=== PATIENT | male | born 1950 | race African-American/Black ===

== ENCOUNTER 2024-06-08 09:25 | Inpatient (IN) | payer OTHER ==
[~2024-06-08] VITALS: Ht 175.3 cm; Wt 60.3 kg
[2024-06-08 09:28] VITALS: O2SAT 100
[2024-06-08] MEDS: KETOROLAC 15MG/ML VIAL IV ONE (10:33)
[2024-06-08] MEDS: ACETAMINOPHEN 325MG TABLET PO ONE (10:33)
[2024-06-08 10:34] LABS: HEMATOCRIT. 27.6 % (42.0-52.0); HEMOGLOBIN. 8.4 g/dL (14.0-18.0); MEAN CORPUSCULAR HEMOGLOBIN 22.4 pg (28.0-32.0); MEAN CORPUSCULAR HGB CONC 30.6 g/dL (31.0-37.0); MEAN CORPUSCULAR VOLUME 73.1 fL (80.0-94.0); MEAN PLATELET VOLUME 7.5 fl (7.4-10.4); PLATELET 111 x1000/uL (130-400); RED BLOOD CELL COUNT 3.78 mill/uL (4.7-6.1); RED CELL DISTRIBUTION WIDTH 17.8 % (11.6-14.6)
[2024-06-08 10:46] LABS: CHLORIDE 102 mEq/L (98-107); POTASSIUM 3.9 mEq/L (3.5-5.1); SODIUM 136 mEq/L (136-145)
[2024-06-08 10:47] LABS: CALCIUM 9.6 mg/dL (8.7-10.4); CARBON DIOXIDE 20 mEq/L (21-32)
[2024-06-08 10:52] LABS: CREATININE 0.8 mg/dL (0.6-1.3); GLUCOSE 96 mg/dL (70-105); UREA NITROGEN BLOOD 14 mg/dL (9-23)
[2024-06-08 10:53] LABS: ALANINE AMINOTRANSFERASE < 7 IU/L (10-49)
[2024-06-08 10:54] LABS: ALBUMIN 3.8 g/dL (3.2-4.8); ASPARTATE AMINOTRANSFERASE 29 IU/L (<34); PROTEIN TOTAL 6.6 g/dL (6.0-8.3)
[2024-06-08 11:13] LABS: DIFFERENTIAL COMMENT 1
[2024-06-08 12:00] VITALS: BP_SYST 112; BP_SYST 119; BP_DIAS 70; BP_DIAS 71; PULSE 100; PULSE 93; RESP 17; RESP 18; TEMP 36.2; TEMP 36.3; O2SAT 100; O2SAT 99
[2024-06-08 13:01] LABS: ATYPICAL LYMPHOCYTES 1; NUCLEATED RED BLOOD CELLS 10 /100 WBC
[2024-06-08 13:02] LABS: ANISOCYTOSIS 2+; MICROCYTOSIS 1+; PLATELET ESTIMATE SLIGHTLY DECREASED
[2024-06-08 13:03] LABS: TEAR DROP CELLS 1+
[2024-06-08] MEDS ORDERED: ONDANSETRON HCL 4MG/2ML INJ IV PRN (13:15)
[2024-06-08] MEDS ORDERED: IPRATROPIUM/ALBUTEROL 0.5-3(2.5)MG/3ML NEB HHN PRN (13:15)
[2024-06-08] MEDS ORDERED: ACETAMINOPHEN 325MG TABLET PO PRN ×2 (13:15)
[2024-06-08] MEDS: NA PHOS,M-B/NA PHOS,DI-BA ENEMA 118ML PR NR (13:15)
[2024-06-08] MEDS ORDERED: DOCUSATE SODIUM 100MG CAPSULE PO PRN (13:15)
[2024-06-08] MEDS ORDERED: CLONIDINE 0.1MG TABLET PO PRN (13:15)
[2024-06-08] MEDS ORDERED: NALOXONE HCL 0.4MG/ML VIAL IV PRN (13:30)
[2024-06-08] MEDS ORDERED: AMLO10TA80 MT (13:59)
[2024-06-08] MEDS ORDERED: ATOR40TA70 MT (13:59)
[2024-06-08 14:44] LABS: IRON 87 ug/dL (65-175)
[2024-06-08 14:45] LABS: TRIGLYCERIDE 156 mg/dL (0-150)
[2024-06-08 14:46] LABS: LDL CHOLESTEROL 107 mg/dL (5-100)
[2024-06-08 14:47] LABS: CHOLESTEROL 164 mg/dL (<200); HDL CHOLESTEROL 24 mg/dL (>55); TOTAL IRON BINDING CAPACITY 533 ug/dl (250-425)
[2024-06-08 15:12] LABS: HEPATITIS B SURFACE ANTIGEN NEGATIVE (Negative)
[2024-06-08 15:32] LABS: HEPATITIS A AB IGM NEGATIVE (Negative)
[2024-06-08 15:33] LABS: HEPATITIS B CORE AB IGM NEGATIVE (Negative); HEPATITIS C AB NON REACTIVE (Neg) (Negative)
[2024-06-08 16:00] VITALS: BP 104/65; PULSE 78; RESP 16; TEMP 36.3; O2SAT 97
[2024-06-08] MEDS: LACTULOSE 20G/30ML UDC PO NR (18:48)
[2024-06-08] MEDS: POLYETHYLENE GLYCOL 3350 (17GM) 1 DOSE PACK PO SCH (18:49)
[2024-06-08] MEDS: PANTOPRAZOLE SODIUM 40 MG/VIAL IV SCH (18:49)
[2024-06-08 20:00] VITALS: BP 101/53; PULSE 85; RESP 19; TEMP 37.1; O2SAT 100
[2024-06-08 20:31] LABS: CREATINE KINASE MB FRACTION 0.6 ng/mL (0.5-3.6); TROPONIN I HIGH SENSITIVITY 6 ng/L (3.0-53)
[2024-06-08 20:32] LABS: AMMONIA 35 uMol/L (<32); CREATINE KINASE 101 IU/L (46-171)
[2024-06-08] MEDS ORDERED: SENNOSIDES/DOCUSATE SOD 8.6/50MG TABLET PO PRN (21:00)
[2024-06-08] MEDS: FILGRASTIM-TBO 300 MCG/0.5 ML SYRINGE SQ NR (22:25)
[2024-06-09] VITALS: BP 100/70; PULSE 79; RESP 19; TEMP 36.7; O2SAT 100
[2024-06-09 04:00] VITALS: BP 116/82; PULSE 82; RESP 18; TEMP 36.8; O2SAT 99
[2024-06-09 06:54] LABS: INR 1.1; PROTHROMBIN TIME 11.4 sec (9.6-11.0)
[2024-06-09 07:04] LABS: HEMOGLOBIN. 8.4 g/dL (14.0-18.0); MEAN CORPUSCULAR HEMOGLOBIN 22.4 pg (28.0-32.0); MEAN CORPUSCULAR HGB CONC 31.1 g/dL (31.0-37.0); MEAN CORPUSCULAR VOLUME 72.1 fL (80.0-94.0); MEAN PLATELET VOLUME 7.8 fl (7.4-10.4); PLATELET 123 x1000/uL (130-400); RED BLOOD CELL COUNT 3.74 mill/uL (4.7-6.1); RED CELL DISTRIBUTION WIDTH 17.9 % (11.6-14.6)
[2024-06-09 07:13] LABS: CHLORIDE 103 mEq/L (98-107); SODIUM 140 mEq/L (136-145)
[2024-06-09 07:16] LABS: CARBON DIOXIDE 27 mEq/L (21-32)
[2024-06-09 07:17] LABS: CALCIUM 9.5 mg/dL (8.7-10.4)
[2024-06-09 07:21] LABS: ALANINE AMINOTRANSFERASE < 7 IU/L (10-49); CREATININE 0.7 mg/dL (0.6-1.3); GLUCOSE 117 mg/dL (70-105); PROTEIN TOTAL 6.4 g/dL (6.0-8.3)
[2024-06-09 07:22] LABS: UREA NITROGEN BLOOD 11 mg/dL (9-23)
[2024-06-09 07:23] LABS: ALBUMIN 3.8 g/dL (3.2-4.8); ASPARTATE AMINOTRANSFERASE 29 IU/L (<34)
[2024-06-09 07:24] LABS: BILIRUBIN DIRECT 0.2 mg/dL (<=3.0); BILIRUBIN TOTAL 0.6 mg/dL (0.1-1.0); GAMMA GLUTAMYL TRANSPEPTIDASE 53 IU/L (<73); PHOSPHORUS 2.4 mg/dL (2.5-4.9)
[2024-06-09 07:25] LABS: FOLIC ACID (FOLATE) SERUM 4.72 ng/mL (>5.38)
[2024-06-09 07:26] LABS: VITAMIN B12 SERUM 172 pg/mL (211-911)
[2024-06-09 07:56] LABS: DIFFERENTIAL COMMENT 1
[2024-06-09 08:00] VITALS: BP 113/62; PULSE 79; RESP 17; TEMP 36.6; O2SAT 97
[2024-06-09] MEDS: FOLIC ACID 1MG TABLET PO SCH (09:06)
[2024-06-09] MEDS: CYANOCOBALAMIN 1000MCG/ML VIAL IM SCH (09:06)
[2024-06-09] MEDS ORDERED: IOHEXOL-350 100 ML BOTTLE ONE (11:13)
[2024-06-09 11:16] LABS: LACTATE DEHYDROGENASE 588 IU/L (120-246)
[2024-06-09 12:00] VITALS: BP 133/82; PULSE 99; RESP 16; TEMP 36.3; O2SAT 97
[2024-06-09 16:00] VITALS: BP 121/74; PULSE 86; RESP 16; TEMP 36.3; O2SAT 96
[2024-06-09 16:54] LABS: CLARITY URINE CLEAR (CLEAR); GLUCOSE URINE NEGATIVE (NEGATIVE); KETONES URINE NEGATIVE (NEGATIVE); LEUKOCYTE ESTERASE URINE NEGATIVE (NEGATIVE); NITRITE URINE NEGATIVE (NEGATIVE); OCCULT BLOOD URINE NEGATIVE (NEGATIVE); PH URINE 5.5 (4.5-8.0); PROTEIN URINE TRACE (NEGATIVE); SPECIFIC GRAVITY URINE 1.039 (1.005-1.030)
[2024-06-09 17:09] LABS: *AMPHETAMINES SCREEN URINE NEGATIVE (NEGATIVE)
[2024-06-09 17:10] LABS: *BARBITURATES SCREEN URINE NEGATIVE (NEGATIVE); *BENZODIAZEPINES SCREEN URINE NEGATIVE (NEGATIVE); *COCAINE SCREEN URINE NEGATIVE (NEGATIVE); CANNABINOID URINE SCREEN NEGATIVE (NEGATIVE); ECSTASY MDMA SCREEN URINE NEGATIVE (NEGATIVE); METHADONE URINE SCREEN NEGATIVE (NEGATIVE); OPIATES URINE SCREEN NEGATIVE (NEGATIVE); PHENCYCLIDINE URINE SCREEN NEGATIVE (NEGATIVE)
[2024-06-09 17:24] LABS: COLOR URINE YELLOW (YELLOW)
[2024-06-09 17:30] LABS: BACTERIA URINE NONE SEEN; RBC URINE NONE SEEN /hpf (0-2); SQUAMOUS EPITHELIAL CELL URINE FEW /lpf (RARE/1+); WBC URINE NONE SEEN /hpf (0-2)
[2024-06-09] MEDS: SODIUM CHLORIDE 0.45% 500 ML IV NR (17:38)
[2024-06-09 17:42] LABS: ANISOCYTOSIS 1+; HYPOCHROMASIA 1+; MICROCYTOSIS 2+; NUCLEATED RED BLOOD CELLS 2 /100 WBC; PLATELET ESTIMATE DECREASED
[2024-06-09 20:00] VITALS: BP 128/78; PULSE 79; RESP 19; TEMP 37.1; O2SAT 100
[2024-06-09] MEDS: FILGRASTIM-TBO 300 MCG/0.5 ML SYRINGE SQ NR (22:36)
[2024-06-10] VITALS: BP_SYST 122; BP_SYST 139; BP_DIAS 61; BP_DIAS 81; PULSE 84; PULSE 90; RESP 16; RESP 19; TEMP 36.4; TEMP 36.9; O2SAT 100; O2SAT 99
[2024-06-10 04:00] VITALS: BP 125/76; PULSE 79; RESP 17; TEMP 36.9; O2SAT 100
[2024-06-10 08:00] VITALS: BP_SYST 11; BP_SYST 117; BP_DIAS 72; PULSE 73; RESP 18; TEMP 36.1; O2SAT 97
[2024-06-10 08:08] LABS: ALPHA FETOPROTEIN TUMOR MARKER 4.1 ng/mL (0.0-8.4)
[2024-06-10] MEDS: HYDROCODONE/ACETAMINOPHEN 5/325MG TABLET PO PRN (10:26)
[2024-06-10 12:00] VITALS: BP 135/80; PULSE 80; RESP 18; TEMP 36.2; O2SAT 98
[2024-06-10 16:00] VITALS: BP 154/86; PULSE 76; RESP 18; TEMP 36.3; O2SAT 98
[2024-06-10 16:54] LABS: BASOPHILS % 0.5 % (0.0-2.0); HEMATOCRIT. 25.3 % (42.0-52.0); MEAN CORPUSCULAR HEMOGLOBIN 22.9 pg (28.0-32.0); MEAN CORPUSCULAR HGB CONC 31.5 g/dL (31.0-37.0); MEAN CORPUSCULAR VOLUME 72.8 fL (80.0-94.0); MEAN PLATELET VOLUME 7.7 fl (7.4-10.4); MONOCYTES % 9.5 % (2.0-8.0); PLATELET 131 x1000/uL (130-400); RED BLOOD CELL COUNT 3.48 mill/uL (4.7-6.1); RED CELL DISTRIBUTION WIDTH 18.6 % (11.6-14.6); WHITE BLOOD COUNT 3.5 x1000/uL (4.5-11.0)
[2024-06-10 17:01] LABS: DIFFERENTIAL COMMENT 1
[2024-06-10 17:02] LABS: PROTHROMBIN TIME 11.2 sec (9.6-11.0)
[2024-06-10 17:07] LABS: CHLORIDE 102 mEq/L (98-107); SODIUM 137 mEq/L (136-145)
[2024-06-10 17:08] LABS: CALCIUM 9.5 mg/dL (8.7-10.4); CARBON DIOXIDE 22 mEq/L (21-32)
[2024-06-10 17:13] LABS: CREATININE 0.7 mg/dL (0.6-1.3); GLUCOSE 154 mg/dL (70-105); UREA NITROGEN BLOOD 12 mg/dL (9-23)
[2024-06-10 17:15] LABS: ALANINE AMINOTRANSFERASE < 7 IU/L (10-49); ALBUMIN 3.7 g/dL (3.2-4.8); AMMONIA 58 uMol/L (<32); ASPARTATE AMINOTRANSFERASE 31 IU/L (<34); BILIRUBIN DIRECT 0.3 mg/dL (<=3.0)
[2024-06-10 17:16] LABS: BILIRUBIN TOTAL 0.8 mg/dL (0.1-1.0); PHOSPHORUS 2.4 mg/dL (2.5-4.9); PROTEIN TOTAL 6.6 g/dL (6.0-8.3)
[2024-06-10 20:00] VITALS: BP 148/85; PULSE 89; RESP 19; TEMP 37.1; O2SAT 100
[2024-06-11] VITALS: BP 148/89; PULSE 81; RESP 19; TEMP 36.9; O2SAT 100
[2024-06-11 04:00] VITALS: BP 148/86; PULSE 99; RESP 19; TEMP 36.5; O2SAT 99
[2024-06-11 06:02] LABS: CARBON DIOXIDE 20 mEq/L (21-32); CHLORIDE 104 mEq/L (98-107); POTASSIUM 4.5 mEq/L (3.5-5.1); SODIUM 138 mEq/L (136-145)
[2024-06-11 06:03] LABS: CALCIUM 9.9 mg/dL (8.7-10.4)
[2024-06-11 06:04] LABS: HEMATOCRIT. 27.4 % (42.0-52.0); HEMOGLOBIN. 8.3 g/dL (14.0-18.0); MEAN CORPUSCULAR HEMOGLOBIN 22.3 pg (28.0-32.0); MEAN CORPUSCULAR HGB CONC 30.3 g/dL (31.0-37.0); MEAN CORPUSCULAR VOLUME 73.6 fL (80.0-94.0); MEAN PLATELET VOLUME 7.6 fl (7.4-10.4); PLATELET 114 x1000/uL (130-400); RED BLOOD CELL COUNT 3.72 mill/uL (4.7-6.1); RED CELL DISTRIBUTION WIDTH 18.5 % (11.6-14.6)
[2024-06-11 06:08] LABS: CREATININE 0.7 mg/dL (0.6-1.3); GLUCOSE 126 mg/dL (70-105); UREA NITROGEN BLOOD 10 mg/dL (9-23)
[2024-06-11 06:47] LABS: DIFFERENTIAL COMMENT 1
[2024-06-11 08:00] VITALS: BP 121/81; PULSE 81; RESP 18; TEMP 36.6; O2SAT 98
[2024-06-11 12:00] VITALS: BP_SYST 113; BP_SYST 115; BP_DIAS 73; PULSE 85; RESP 17; TEMP 36.8; O2SAT 97
[2024-06-11 16:00] VITALS: BP 126/73; PULSE 83; RESP 18; TEMP 36.4; O2SAT 98
[2024-06-11 16:08] LABS: NUCLEATED RED BLOOD CELLS 13 /100 WBC
[2024-06-11 16:09] LABS: ANISOCYTOSIS 2+; MICROCYTOSIS 2+; PLATELET ESTIMATE SLIGHTLY DECREASED
[2024-06-11 16:10] LABS: HYPOCHROMASIA 1+
[2024-06-11 20:00] VITALS: BP 110/67; PULSE 92; RESP 19; TEMP 36.4; O2SAT 99
[2024-06-12] VITALS: BP 116/73; PULSE 88; TEMP 36.4; O2SAT 99
[2024-06-12 04:00] VITALS: BP 119/60; PULSE 94; RESP 17; TEMP 36.4; O2SAT 100
[2024-06-12 08:00] VITALS: BP 106/69; PULSE 81; RESP 18; TEMP 36.3; O2SAT 96
[2024-06-12] MEDS: IRON SUCROSE COMPLEX 100 MG/5 ML ML IV NR (10:36)
[2024-06-12 12:00] VITALS: BP 92/68; PULSE 76; RESP 17; TEMP 36.4; O2SAT 97
[2024-06-12 16:00] VITALS: BP 104/67; PULSE 79; RESP 17; TEMP 36.5; O2SAT 97
[2024-06-12 20:00] VITALS: BP 107/73; PULSE 104; RESP 18; TEMP 36.7; O2SAT 100
[2024-06-12] MEDS: ATORVASTATIN CALCIUM 40MG TABLET PO SCH (21:59)
[2024-06-13] VITALS: BP 104/71; PULSE 87; RESP 18; TEMP 36.5; O2SAT 100
[2024-06-13 04:00] VITALS: BP 106/68; PULSE 82; RESP 19; TEMP 36.4; O2SAT 100
[2024-06-13 07:15] LABS: HEMATOCRIT. 23.5 % (42.0-52.0); HEMOGLOBIN. 7.5 g/dL (14.0-18.0); MEAN CORPUSCULAR HEMOGLOBIN 22.8 pg (28.0-32.0); MEAN CORPUSCULAR HGB CONC 31.8 g/dL (31.0-37.0); MEAN CORPUSCULAR VOLUME 71.9 fL (80.0-94.0); MEAN PLATELET VOLUME 8.2 fl (7.4-10.4); PLATELET 115 x1000/uL (130-400); RED BLOOD CELL COUNT 3.27 mill/uL (4.7-6.1); RED CELL DISTRIBUTION WIDTH 17.8 % (11.6-14.6); WHITE BLOOD COUNT 2.6 x1000/uL (4.5-11.0)
[2024-06-13 07:19] LABS: DIFFERENTIAL COMMENT 1
[2024-06-13 08:00] VITALS: BP 101/66; PULSE 91; RESP 17; TEMP 36.5; O2SAT 97
[2024-06-13 12:00] VITALS: BP 105/69; PULSE 83; RESP 17; TEMP 36.6; O2SAT 97
[2024-06-13 16:00] VITALS: BP 107/65; PULSE 83; RESP 15; TEMP 36.6; O2SAT 98
[2024-06-13 17:14] LABS: HYPOCHROMASIA 1+; MICROCYTOSIS 2+; NUCLEATED RED BLOOD CELLS 2 /100 WBC; PLATELET ESTIMATE DECREASED
[2024-06-13 17:15] LABS: ANISOCYTOSIS 1+
[2024-06-13 20:00] VITALS: BP 102/71; PULSE 90; RESP 19; TEMP 37; O2SAT 100
[2024-06-14] VITALS: BP 111/72; RESP 19; TEMP 36.8; O2SAT 100
[2024-06-14 04:00] VITALS: BP 140/76; PULSE 96; RESP 19; TEMP 36.7; O2SAT 100
[2024-06-14 08:00] VITALS: BP 106/66; PULSE 85; RESP 19; TEMP 36.9; O2SAT 100
[2024-06-14 08:46] LABS: HEMATOCRIT. 23.3 % (42.0-52.0); HEMOGLOBIN. 7.5 g/dL (14.0-18.0); MEAN CORPUSCULAR HEMOGLOBIN 23.4 pg (28.0-32.0); MEAN CORPUSCULAR HGB CONC 32.4 g/dL (31.0-37.0); MEAN CORPUSCULAR VOLUME 72.3 fL (80.0-94.0); MEAN PLATELET VOLUME 7.4 fl (7.4-10.4); PLATELET 107 x1000/uL (130-400); RED BLOOD CELL COUNT 3.22 mill/uL (4.7-6.1); RED CELL DISTRIBUTION WIDTH 18.3 % (11.6-14.6)
[2024-06-14 08:47] LABS: CARBON DIOXIDE 23 mEq/L (21-32); CHLORIDE 106 mEq/L (98-107); POTASSIUM 4.1 mEq/L (3.5-5.1); SODIUM 139 mEq/L (136-145)
[2024-06-14 08:48] LABS: CALCIUM 9.2 mg/dL (8.7-10.4)
[2024-06-14 08:53] LABS: CREATININE 0.6 mg/dL (0.6-1.3); GLUCOSE 94 mg/dL (70-105); UREA NITROGEN BLOOD 17 mg/dL (9-23)
[2024-06-14 08:56] LABS: DIFFERENTIAL COMMENT 1
[2024-06-14 12:00] VITALS: BP 105/62; PULSE 81; TEMP 36.4
[2024-06-14] MEDS: LACTULOSE 20G/30ML UDC PO SCH (14:00)
[2024-06-14 16:00] VITALS: BP 113/75; PULSE 86; RESP 19; TEMP 36.7; O2SAT 96
[2024-06-14 16:14] LABS: ANISOCYTOSIS 1+; PLATELET ESTIMATE DECREASED
[2024-06-14 16:15] LABS: GIANT PLATELETS FEW; HYPOCHROMASIA 1+; MICROCYTOSIS 2+
[2024-06-14 20:00] VITALS: BP 105/70; PULSE 87; RESP 19; TEMP 37.1; O2SAT 100
[2024-06-15] VITALS: BP 125/63; PULSE 90; RESP 18; TEMP 36.8; O2SAT 100
[2024-06-15 06:38] LABS: HEMATOCRIT. 23.1 % (42.0-52.0); HEMOGLOBIN. 7.3 g/dL (14.0-18.0); MEAN CORPUSCULAR HEMOGLOBIN 22.7 pg (28.0-32.0); MEAN CORPUSCULAR HGB CONC 31.7 g/dL (31.0-37.0); MEAN CORPUSCULAR VOLUME 71.6 fL (80.0-94.0); MEAN PLATELET VOLUME 7.7 fl (7.4-10.4); PLATELET 114 x1000/uL (130-400); RED BLOOD CELL COUNT 3.23 mill/uL (4.7-6.1); WHITE BLOOD COUNT 2.6 x1000/uL (4.5-11.0)
[2024-06-15 06:50] LABS: CHLORIDE 103 mEq/L (98-107); POTASSIUM 3.9 mEq/L (3.5-5.1); SODIUM 136 mEq/L (136-145)
[2024-06-15 06:51] LABS: CARBON DIOXIDE 24 mEq/L (21-32)
[2024-06-15 06:52] LABS: CALCIUM 8.7 mg/dL (8.7-10.4)
[2024-06-15 06:56] LABS: CREATININE 0.7 mg/dL (0.6-1.3); GLUCOSE 96 mg/dL (70-105); UREA NITROGEN BLOOD 14 mg/dL (9-23)
[2024-06-15 07:19] LABS: DIFFERENTIAL COMMENT 1
[2024-06-15 08:00] VITALS: BP 109/72; PULSE 89; RESP 19; TEMP 36.3; O2SAT 100
[2024-06-15 12:00] VITALS: BP 109/68; PULSE 85; RESP 19; TEMP 36.2; O2SAT 98
[2024-06-15] MEDS ORDERED: LIDOCAINE HCL/PF 1% 10 MG/ML 5ML VIAL ONE (14:12)
[2024-06-15] MEDS ORDERED: PROPOFOL 200MG/20ML VIAL IV ONE ×2 (14:12→14:39)
[2024-06-15] MEDS ORDERED: LIDOCAINE HCL 2% 5ML SYRINGE IV ONE (14:22)
[2024-06-15] MEDS ORDERED: LIDOCAINE HCL 1% 10 MG/ML 10ML VIAL ONE (14:22)
[2024-06-15] MEDS ORDERED: LIDOCAINE HCL 1% 20ML VIAL ONE (14:23)
[2024-06-15 16:00] VITALS: BP 112/72; PULSE 80; RESP 19; TEMP 36.3; O2SAT 97
[2024-06-15 16:31] LABS: ANISOCYTOSIS 1+; HYPOCHROMASIA 1+; MICROCYTOSIS 2+; NUCLEATED RED BLOOD CELLS 12 /100 WBC; PLATELET ESTIMATE DECREASED
[2024-06-15 20:00] VITALS: BP 122/70; PULSE 78; RESP 18; TEMP 36.2; O2SAT 98
[2024-06-16] VITALS: BP 120/67; PULSE 91; RESP 22; TEMP 36.3; O2SAT 96
[2024-06-16 04:00] VITALS: BP 111/70; PULSE 83; RESP 22; TEMP 36.2; O2SAT 96
[2024-06-16 08:00] VITALS: BP 108/56; PULSE 89; RESP 18; TEMP 36.3; O2SAT 97
[2024-06-16] MEDS ORDERED: FOLI-43 PO (11:40)
[2024-06-16] MEDS ORDERED: ASPI-1406 MT (11:40)
[2024-06-16 12:00] VITALS: BP 103/61; PULSE 73; RESP 17; TEMP 36.8; O2SAT 99
[2024-06-16 16:00] VITALS: BP 111/68; PULSE 62; RESP 17; TEMP 36.6; O2SAT 90
== END 2024-06-16 18:10 | disposition home or self-care (01) | DRG 556 ==
LOC: ER 09:25 → 6WST 11:18
PROVIDERS: ADMIT Internal Medicine; ATTEND Internal Medicine
PROC: 07DQ3ZZ Extraction of Sternum Bone Marrow, Percutaneous Approach (ICD-10-PCS; principal; 2024-06-15)
DX: M25.552 Pain in left hip (principal); D61.818 Other pancytopenia; G93.40 Encephalopathy, unspecified; K56.49 Other impaction of intestine; E72.20 Disorder of urea cycle metabolism, unspecified; R64 Cachexia; Z68.1 Body mass index [BMI] 19.9 or less, adult; C61 Malignant neoplasm of prostate; D72.825 Bandemia; D50.9 Iron deficiency anemia, unspecified; K76.89 Other specified diseases of liver; E53.8 Deficiency of other specified B group vitamins; K56.41 Fecal impaction; D17.71 Benign lipomatous neoplasm of kidney; M48.061 Spinal stenosis, lumbar region without neurogenic claudication; E78.00 Pure hypercholesterolemia, unspecified; I10 Essential (primary) hypertension; J45.909 Unspecified asthma, uncomplicated; Z79.899 Other long term (current) drug therapy; Z86.73 Personal history of transient ischemic attack (TIA), and cerebral infarction without residual deficits; Z87.891 Personal history of nicotine dependence
CPT/HCPCS: 36415; 38220; 72131; 74176; 74178; 76700; 80048; 80053; 80061; 80076; 80305; 81003; 82105; 82140; 82270; 82378; 82550; 82553; 82607; 82728; 82746; 82977; 83540; 83550; 83615; 83735; 84100; 84153; 84207; 84484; 84550; 85025; 85044; 85060; 85097; 86301; 86705; 86709; 87340; 88313; 97162; 97166; 97535; 99285; J1442; J1885; J2003; J2470; J2704; J3420; J3490; Q9967

== ENCOUNTER 2024-07-06 17:12 | Inpatient (IN) | payer OTHER ==
[~2024-07-06] VITALS: Ht 182.9 cm; Wt 57.6 kg
[~2024-07-06 17:12] MED LIST: ALBU18HF2 IH; ATOR40TA70 MT; FLUT1DIS3 INH; FOLI-43 PO; TAMS-54 PO
[2024-07-06] MEDS: MORPHINE SULFATE 4 MG/ML INJ (FOR IV/IM USE) IV STA (18:31)
[2024-07-06] MEDS: SODIUM CHLORIDE 0.9% 1,000 ML IV ONE (18:32)
[2024-07-06] MEDS: ONDANSETRON HCL 4MG/2ML INJ IV STA (18:32)
[2024-07-06 18:38] LABS: CREATININE 0.5 mg/dL (0.6-1.3); UREA NITROGEN BLOOD 11 mg/dL (9-23)
[2024-07-06 19:05] LABS: INR 1.0
[2024-07-06 19:09] LABS: MEAN PLATELET VOLUME 7.7 fl (7.4-10.4); PLATELET 82 x1000/uL (130-400); RED BLOOD CELL COUNT 2.74 mill/uL (4.7-6.1); RED CELL DISTRIBUTION WIDTH 21.3 % (11.6-14.6)
[2024-07-06 19:14] LABS: HEMATOCRIT. 20.0 % (42.0-52.0); HEMOGLOBIN. 6.5 g/dL (14.0-18.0)
[2024-07-06 22:28] LABS: BAND% 4.0 % (1.0-6.0); BASOPHILS % MANUAL 1.0 % (0.0-2.0); EOSINOPHILS % MANUAL 2.0 % (0.0-5.0); LYMPHOCYTES % MANUAL 28.0 % (20.0-50.0); MONOCYTES % MANUAL 17.0 % (2.0-8.0); NEUTROPHILS % MANUAL 48.0 % (45.0-75.0); NUCLEATED RED BLOOD CELLS 36 /100 WBC; PLATELET ESTIMATE DECREASED
[2024-07-07] VITALS (7 sets, daily range): BP systolic 96–143; BP diastolic 55–78; PULSE 65–84; RESP 18–20; TEMP 36.3–36.7; O2SAT 95–100
[2024-07-07] MEDS ORDERED: *PATIENT'S OWN MEDICATION STORAGE XX SCH (01:15)
[2024-07-07] MEDS ORDERED: IPRATROPIUM/ALBUTEROL 0.5-3(2.5)MG/3ML NEB HHN PRN (02:00)
[2024-07-07 03:31] LABS: CLARITY URINE CLEAR (CLEAR); COLOR URINE DARK YELLOW (YELLOW); GLUCOSE URINE NEGATIVE (NEGATIVE); KETONES URINE NEGATIVE (NEGATIVE); LEUKOCYTE ESTERASE URINE NEGATIVE (NEGATIVE); NITRITE URINE NEGATIVE (NEGATIVE); OCCULT BLOOD URINE NEGATIVE (NEGATIVE); PH URINE 6.5 (4.5-8.0); PROTEIN URINE NEGATIVE (NEGATIVE); SPECIFIC GRAVITY URINE 1.015 (1.005-1.030); UROBILINOGEN URINE 4.0 E.U./dL (0.2-1.0)
[2024-07-07 04:08] LABS: BACTERIA URINE NONE SEEN; RBC URINE 0-2 /hpf (0-2); SQUAMOUS EPITHELIAL CELL URINE 1+ /lpf (RARE/1+); WBC URINE 0-2 /hpf (0-2)
[2024-07-07] MEDS ORDERED: AMLO10TA80 PO (07:00)
[2024-07-07] MEDS ORDERED: ASPI81TA47 PO (07:01)
[2024-07-07 07:19] LABS: HEMATOCRIT. 23.3 % (42.0-52.0); HEMOGLOBIN. 7.5 g/dL (14.0-18.0); MEAN PLATELET VOLUME 7.1 fl (7.4-10.4); PLATELET 69 x1000/uL (130-400); RED BLOOD CELL COUNT 3.05 mill/uL (4.7-6.1); RED CELL DISTRIBUTION WIDTH 20.8 % (11.6-14.6)
[2024-07-07 07:48] LABS: CREATININE 0.5 mg/dL (0.6-1.3)
[2024-07-07 07:49] LABS: UREA NITROGEN BLOOD 8 mg/dL (9-23)
[2024-07-07 07:53] LABS: FOLIC ACID (FOLATE) SERUM 8.76 ng/mL (>5.38)
[2024-07-07 15:31] LABS: EOSINOPHILS % MANUAL 3.0 % (0.0-5.0); LYMPHOCYTES % MANUAL 35.0 % (20.0-50.0); MONOCYTES % MANUAL 11.0 % (2.0-8.0); NEUTROPHILS % MANUAL 51.0 % (45.0-75.0); NUCLEATED RED BLOOD CELLS 5 /100 WBC; PLATELET ESTIMATE DECREASED
[2024-07-08] VITALS: BP 106/56; PULSE 81; RESP 19; TEMP 36.5; O2SAT 99
[2024-07-08 04:00] VITALS: BP 121/63; PULSE 78; RESP 18; TEMP 36.4; O2SAT 100
[2024-07-08 08:00] VITALS: BP 102/57; PULSE 72; RESP 20; TEMP 36.3; O2SAT 95
[2024-07-08 12:00] VITALS: BP 106/63; PULSE 70; RESP 20; TEMP 34.7; O2SAT 90
[2024-07-08 16:00] VITALS: BP 104/65; PULSE 72; RESP 18; TEMP 36.4; O2SAT 98
[2024-07-08 20:00] VITALS: BP 112/66; PULSE 74; RESP 20; TEMP 36.1; O2SAT 99
[2024-07-08 21:57] LABS: HEMATOCRIT. 28.5 % (42.0-52.0); HEMOGLOBIN. 8.9 g/dL (14.0-18.0); MEAN PLATELET VOLUME 7.4 fl (7.4-10.4); PLATELET 80 x1000/uL (130-400); RED BLOOD CELL COUNT 3.65 mill/uL (4.7-6.1); RED CELL DISTRIBUTION WIDTH 21.4 % (11.6-14.6)
[2024-07-08 22:25] LABS: EOSINOPHILS % MANUAL 3.0 % (0.0-5.0); LYMPHOCYTES % MANUAL 40.0 % (20.0-50.0); MONOCYTES % MANUAL 17.0 % (2.0-8.0); NEUTROPHILS % MANUAL 40.0 % (45.0-75.0); NUCLEATED RED BLOOD CELLS 18 /100 WBC; PLATELET ESTIMATE DECREASED
[2024-07-09] VITALS (7 sets, daily range): BP systolic 100–176; BP diastolic 64–88; PULSE 70–88; RESP 18–20; TEMP 36.2–37; O2SAT 96–99
[2024-07-10] VITALS: BP 99/49; PULSE 82; RESP 20; TEMP 36.2; O2SAT 99
[2024-07-10 04:00] VITALS: BP 104/65; PULSE 77; RESP 20; TEMP 36.2; O2SAT 99
[2024-07-10 08:00] VITALS: BP 98/61; PULSE 69; RESP 20; TEMP 36.3; O2SAT 95
[2024-07-10 12:00] VITALS: BP 111/66; PULSE 82; RESP 20; TEMP 36.2; O2SAT 94
[2024-07-10 16:00] VITALS: BP 118/65; PULSE 84; RESP 20; TEMP 36.3; O2SAT 94
[2024-07-10 20:00] VITALS: BP 119/71; PULSE 68; RESP 18; TEMP 36; O2SAT 98
[2024-07-11] VITALS: BP 120/74; PULSE 61; RESP 18; TEMP 35.9; O2SAT 100
[2024-07-11 04:00] VITALS: BP 118/72; PULSE 61; RESP 18; TEMP 36.1; O2SAT 99
[2024-07-11 08:00] VITALS: BP 96/65; PULSE 79; RESP 16; TEMP 36.3; O2SAT 95
[2024-07-11 12:00] VITALS: BP 102/63; PULSE 76; RESP 18; TEMP 36.6; O2SAT 99
[2024-07-11 16:00] VITALS: BP 106/63; PULSE 78; RESP 16; TEMP 36.3; O2SAT 96
[2024-07-11 20:00] VITALS: BP 109/56; PULSE 79; RESP 18; TEMP 36.7; O2SAT 98
[2024-07-12] VITALS: BP 110/64; PULSE 76; RESP 18; TEMP 36.7; O2SAT 99
[2024-07-12 04:00] VITALS: BP 111/55; PULSE 79; RESP 18; TEMP 36.3
[2024-07-12 08:00] VITALS: BP 91/64; PULSE 74; RESP 20; TEMP 36.4; O2SAT 97
[2024-07-12 12:00] VITALS: BP 98/59; PULSE 81; RESP 20; TEMP 36.7; O2SAT 100
[2024-07-12 16:00] VITALS: BP 101/62; PULSE 79; RESP 20; TEMP 36.4; O2SAT 100
[2024-07-12 20:00] VITALS: BP 94/51; PULSE 83; RESP 18; TEMP 36.7; O2SAT 95
[2024-07-13] VITALS (7 sets, daily range): BP systolic 97–113; BP diastolic 50–67; PULSE 74–89; RESP 18–20; TEMP 36.3–36.7; O2SAT 74–100
[2024-07-14] VITALS: BP 104/63; PULSE 76; RESP 19; TEMP 36.5; O2SAT 76
[2024-07-14 04:00] VITALS: BP 98/58; PULSE 85; RESP 19; TEMP 36.4; O2SAT 99
[2024-07-14 08:00] VITALS: BP 111/61; PULSE 73; RESP 20; TEMP 36.3
[2024-07-14 10:00] VITALS: BP 111/61; PULSE 73; RESP 20; TEMP 36.3
[2024-07-14 20:00] VITALS: BP 118/66; PULSE 74; RESP 17; TEMP 36.6; O2SAT 98
[2024-07-15] VITALS: BP 106/62; PULSE 79; RESP 16; TEMP 36.6; O2SAT 98
[2024-07-15 04:00] VITALS: BP 114/65; PULSE 90; RESP 18; TEMP 36.6; O2SAT 98
[2024-07-15 08:00] VITALS: BP 109/64; PULSE 75; RESP 18; TEMP 36.5; O2SAT 97
[2024-07-15 12:00] VITALS: BP 100/66; PULSE 78; RESP 18; TEMP 36.3; O2SAT 98
[2024-07-15 16:00] VITALS: BP 98/62; PULSE 76; RESP 19; TEMP 36.5; O2SAT 98
[2024-07-15 20:00] VITALS: BP 112/58; PULSE 75; RESP 18; TEMP 36.6; O2SAT 97
[2024-07-16] VITALS: BP 124/66; PULSE 81; RESP 20; TEMP 36.7; O2SAT 97
[2024-07-16 04:00] VITALS: BP 114/72; PULSE 75; RESP 19; TEMP 36.4; O2SAT 100
[2024-07-16 08:00] VITALS: BP 114/70; PULSE 90; RESP 19; TEMP 36.6; O2SAT 96
[2024-07-16 11:41] LABS: HEMATOCRIT. 25.2 % (42.0-52.0); HEMOGLOBIN. 8.0 g/dL (14.0-18.0); MEAN PLATELET VOLUME 8.1 fl (7.4-10.4); PLATELET 105 x1000/uL (130-400); RED BLOOD CELL COUNT 3.22 mill/uL (4.7-6.1); RED CELL DISTRIBUTION WIDTH 21.6 % (11.6-14.6)
[2024-07-16 12:00] VITALS: BP_SYST 101; BP_SYST 137; BP_DIAS 61; BP_DIAS 87; PULSE 78; PULSE 81; RESP 18; TEMP 36.3; TEMP 36.6; O2SAT 95; O2SAT 98
[2024-07-16 14:25] LABS: BAND% 13.0 % (1.0-6.0); EOSINOPHILS % MANUAL 2.0 % (0.0-5.0); LYMPHOCYTES % MANUAL 30.0 % (20.0-50.0); MONOCYTES % MANUAL 25.0 % (2.0-8.0); NEUTROPHILS % MANUAL 30.0 % (45.0-75.0); NUCLEATED RED BLOOD CELLS 15 /100 WBC
[2024-07-16 14:26] LABS: PLATELET ESTIMATE DECREASED
[2024-07-16] MEDS: ACETAMINOPHEN 325MG TABLET PO PRN (16:34)
[2024-07-16 20:00] VITALS: BP 105/60; PULSE 87; RESP 19; TEMP 36.9; O2SAT 95
[2024-07-17] VITALS: BP 116/62; PULSE 81; RESP 18; TEMP 36.9; O2SAT 99
[2024-07-17 04:00] VITALS: BP 107/64; PULSE 83; RESP 19; TEMP 36.8; O2SAT 99
[2024-07-17 07:04] LABS: HEMATOCRIT. 22.8 % (42.0-52.0); HEMOGLOBIN. 7.3 g/dL (14.0-18.0); MEAN PLATELET VOLUME 7.0 fl (7.4-10.4); PLATELET 103 x1000/uL (130-400); RED BLOOD CELL COUNT 2.98 mill/uL (4.7-6.1); RED CELL DISTRIBUTION WIDTH 21.5 % (11.6-14.6)
[2024-07-17 07:12] LABS: CREATININE 0.8 mg/dL (0.6-1.3)
[2024-07-17 07:13] LABS: UREA NITROGEN BLOOD 15 mg/dL (9-23)
[2024-07-17 08:00] VITALS: BP 105/64; PULSE 79; RESP 20; TEMP 36.5; O2SAT 95
[2024-07-17 12:00] VITALS: BP 96/60; PULSE 71; RESP 17; TEMP 36.6; O2SAT 95
[2024-07-17 13:47] LABS: BAND% 12.0 % (1.0-6.0); EOSINOPHILS % MANUAL 2.0 % (0.0-5.0); LYMPHOCYTES % MANUAL 38.0 % (20.0-50.0); MONOCYTES % MANUAL 12.0 % (2.0-8.0); NEUTROPHILS % MANUAL 36.0 % (45.0-75.0); NUCLEATED RED BLOOD CELLS 7 /100 WBC; PLATELET ESTIMATE MARKEDLY DECREASED
[2024-07-17 16:00] VITALS: BP 105/67; PULSE 76; RESP 20; TEMP 36.5; O2SAT 95
[2024-07-17 20:00] VITALS: BP 109/62; PULSE 81; RESP 18; TEMP 36.6; O2SAT 97
[2024-07-18] VITALS (10 sets, daily range): BP systolic 97–112; BP diastolic 50–68; PULSE 64–91; RESP 16–20; TEMP 36.4–37.2252; O2SAT 95–100
[2024-07-18 07:10] LABS: HEMATOCRIT. 23.1 % (42.0-52.0); HEMOGLOBIN. 7.2 g/dL (14.0-18.0); MEAN PLATELET VOLUME 6.8 fl (7.4-10.4); PLATELET 111 x1000/uL (130-400); RED BLOOD CELL COUNT 2.95 mill/uL (4.7-6.1); RED CELL DISTRIBUTION WIDTH 21.6 % (11.6-14.6)
[2024-07-18 07:11] LABS: CREATININE 0.6 mg/dL (0.6-1.3); UREA NITROGEN BLOOD 14 mg/dL (9-23)
[2024-07-18 08:10] LABS: ATYPICAL LYMPHOCYTES 1; BAND% 9.0 % (1.0-6.0); EOSINOPHILS % MANUAL 1.0 % (0.0-5.0); LYMPHOCYTES % MANUAL 41.0 % (20.0-50.0); METAMYELOCYTES % 2.0 % (0-0); MONOCYTES % MANUAL 24.0 % (2.0-8.0); MYELOCYTES % 2.0 % (0-0); NEUTROPHILS % MANUAL 20.0 % (45.0-75.0); NUCLEATED RED BLOOD CELLS 27 /100 WBC; PLATELET ESTIMATE SLIGHTLY DECREASED
[2024-07-18 13:51] LABS: INR 1.0
[2024-07-18 20:50] LABS: HEMATOCRIT. 25.9 % (42.0-52.0); HEMOGLOBIN. 8.3 g/dL (14.0-18.0); MEAN PLATELET VOLUME 6.9 fl (7.4-10.4); PLATELET 105 x1000/uL (130-400); RED BLOOD CELL COUNT 3.31 mill/uL (4.7-6.1); RED CELL DISTRIBUTION WIDTH 19.6 % (11.6-14.6)
[2024-07-18 21:10] LABS: BAND% 10.0 % (1.0-6.0); LYMPHOCYTES % MANUAL 40.0 % (20.0-50.0); METAMYELOCYTES % 4.0 % (0-0); MONOCYTES % MANUAL 19.0 % (2.0-8.0); MYELOCYTES % 3.0 % (0-0); NEUTROPHILS % MANUAL 24.0 % (45.0-75.0)
[2024-07-18 21:11] LABS: PLATELET ESTIMATE SLIGHTLY DECREASED
[2024-07-19] VITALS: BP 105/56; PULSE 78; RESP 19; TEMP 36.6; O2SAT 98
[2024-07-19 04:00] VITALS: BP 109/54; PULSE 79; RESP 19; TEMP 36.7; O2SAT 97
[2024-07-19 08:00] VITALS: BP 113/68; PULSE 82; RESP 19; TEMP 36.4; O2SAT 100
[2024-07-19] MEDS: PANTOPRAZOLE SODIUM 40 MG/VIAL IV SCH (09:00)
[2024-07-19 10:34] LABS: CREATININE 0.6 mg/dL (0.6-1.3); UREA NITROGEN BLOOD 12 mg/dL (9-23)
[2024-07-19 10:36] LABS: ASPARTATE AMINOTRANSFERASE 23 IU/L (<34); BILIRUBIN DIRECT 0.2 mg/dL (<=3.0); PHOSPHORUS 3.0 mg/dL (2.5-4.9)
[2024-07-19 10:37] LABS: BILIRUBIN TOTAL 0.6 mg/dL (0.1-1.0); PROTEIN TOTAL 6.4 g/dL (6.0-8.3)
[2024-07-19 10:39] LABS: INR 1.0
[2024-07-19 10:57] LABS: HEMATOCRIT. 26.0 % (42.0-52.0); HEMOGLOBIN. 8.3 g/dL (14.0-18.0); MEAN PLATELET VOLUME 6.8 fl (7.4-10.4); PLATELET 119 x1000/uL (130-400); RED BLOOD CELL COUNT 3.30 mill/uL (4.7-6.1); RED CELL DISTRIBUTION WIDTH 20.2 % (11.6-14.6)
[2024-07-19 11:28] LABS: FOLIC ACID (FOLATE) SERUM 11.04 ng/mL (>5.38); VITAMIN B12 SERUM 445 pg/mL (211-911)
[2024-07-19 12:00] VITALS: BP 108/63; PULSE 82; RESP 19; TEMP 36.3; O2SAT 100
[2024-07-19 14:55] LABS: BAND% 10.0 % (1.0-6.0); LYMPHOCYTES % MANUAL 44.0 % (20.0-50.0); METAMYELOCYTES % 2.0 % (0-0); MONOCYTES % MANUAL 15.0 % (2.0-8.0); MYELOCYTES % 4.0 % (0-0); NEUTROPHILS % MANUAL 25.0 % (45.0-75.0); NUCLEATED RED BLOOD CELLS 12 /100 WBC; PLATELET ESTIMATE DECREASED
[2024-07-19 16:00] VITALS: BP 108/67; PULSE 76; RESP 20; TEMP 36.5; O2SAT 100
[2024-07-19 20:00] VITALS: BP 111/71; PULSE 83; RESP 18; TEMP 36.8; O2SAT 100
[2024-07-20] VITALS: BP 101/51; PULSE 81; RESP 16; TEMP 36.4; O2SAT 97
[2024-07-20 04:00] VITALS: BP 115/59; PULSE 82; RESP 16; TEMP 36.7; O2SAT 100
[2024-07-20 08:00] VITALS: BP 103/63; PULSE 96; RESP 19; TEMP 36.4; O2SAT 100
[2024-07-20 10:25] LABS: HEMATOCRIT. 26.1 % (42.0-52.0); HEMOGLOBIN. 8.2 g/dL (14.0-18.0); MEAN PLATELET VOLUME 6.7 fl (7.4-10.4); PLATELET 113 x1000/uL (130-400); RED BLOOD CELL COUNT 3.30 mill/uL (4.7-6.1); RED CELL DISTRIBUTION WIDTH 19.6 % (11.6-14.6)
[2024-07-20 10:54] LABS: CREATININE 0.7 mg/dL (0.6-1.3); UREA NITROGEN BLOOD 14 mg/dL (9-23)
[2024-07-20 12:00] VITALS: BP 107/65; PULSE 86; RESP 19; TEMP 36.4; O2SAT 95
[2024-07-20 15:13] LABS: BAND% 10.0 % (1.0-6.0); LYMPHOCYTES % MANUAL 36.0 % (20.0-50.0); METAMYELOCYTES % 1.0 % (0-0); MONOCYTES % MANUAL 18.0 % (2.0-8.0); MYELOCYTES % 4.0 % (0-0); NEUTROPHILS % MANUAL 31.0 % (45.0-75.0); NUCLEATED RED BLOOD CELLS 9 /100 WBC
[2024-07-20 15:15] LABS: PLATELET ESTIMATE SLIGHTLY DECREASED; PLATELET SATELLITISM FEW
[2024-07-20 16:00] VITALS: BP 115/62; PULSE 65; RESP 20; TEMP 36.3
[2024-07-20 20:00] VITALS: BP 119/61; PULSE 75; RESP 18; TEMP 36.7; O2SAT 99
[2024-07-21] VITALS: BP 99/60; PULSE 80; RESP 17; TEMP 36.7; O2SAT 99
[2024-07-21 04:00] VITALS: BP 111/67; PULSE 94; RESP 20; TEMP 36.8; O2SAT 99
[2024-07-21 08:00] VITALS: BP 118/67; PULSE 85; RESP 18; TEMP 36.5; O2SAT 97
[2024-07-21 12:00] VITALS: BP 104/59; PULSE 83; RESP 18; TEMP 36.4; O2SAT 98
[2024-07-21 16:00] VITALS: BP 126/60; PULSE 80; RESP 18; TEMP 36.4; O2SAT 97
[2024-07-21 20:00] VITALS: BP 112/66; PULSE 80; RESP 19; TEMP 36.6; O2SAT 98
[2024-07-22] VITALS: BP 106/60; PULSE 82; RESP 19; TEMP 36.3; O2SAT 95
[2024-07-22 04:00] VITALS: BP 113/54; PULSE 80; RESP 18; TEMP 36.3; O2SAT 95
[2024-07-22 08:00] VITALS: BP 99/61; PULSE 79; RESP 18; TEMP 36.7; O2SAT 98
[2024-07-22 12:00] VITALS: BP 98/60; PULSE 70; RESP 19; TEMP 36.4; O2SAT 99
[2024-07-22 16:00] VITALS: BP 99/61; PULSE 72; RESP 18; TEMP 36.8; O2SAT 99
[2024-07-22 20:00] VITALS: BP 113/67; PULSE 72; RESP 18; TEMP 36.4; O2SAT 96
[2024-07-23] VITALS: BP 124/62; PULSE 72; RESP 19; TEMP 36.3; O2SAT 97
[2024-07-23 04:00] VITALS: BP 132/84; PULSE 72; RESP 18; TEMP 36.5; O2SAT 96
[2024-07-23 08:00] VITALS: BP 120/79; PULSE 70; RESP 16; TEMP 36.4; O2SAT 95
[2024-07-23 12:00] VITALS: BP 107/66; PULSE 75; RESP 18; TEMP 36.3; O2SAT 96
[2024-07-23 16:00] VITALS: BP 128/69; PULSE 73; RESP 16; TEMP 36.3; O2SAT 95
[2024-07-23 20:00] VITALS: BP 113/67; PULSE 71; RESP 18; TEMP 35.8; O2SAT 96
[2024-07-24 04:00] VITALS: BP 117/77; PULSE 85; RESP 18; TEMP 36.4; O2SAT 95
[2024-07-24] MEDS: PANTOPRAZOLE 40MG DR TABLET PO SCH (06:29)
[2024-07-24 08:00] VITALS: BP 114/72; PULSE 83; RESP 20; TEMP 36.3
[2024-07-24 12:00] VITALS: BP 118/55; PULSE 71; RESP 18; TEMP 36.4; O2SAT 95
[2024-07-24 16:00] VITALS: BP 105/70; PULSE 98; RESP 20; TEMP 36.2; O2SAT 98
[2024-07-24 20:00] VITALS: BP 112/66; PULSE 72; RESP 16; TEMP 36.2; O2SAT 93
[2024-07-25] VITALS: BP 98/59; PULSE 69; RESP 18; TEMP 36.3; O2SAT 96
[2024-07-25 04:00] VITALS: BP 106/67; PULSE 96; RESP 18; TEMP 36.2; O2SAT 98
[2024-07-25 08:00] VITALS: BP 97/57; PULSE 93; RESP 16; TEMP 36.3; O2SAT 95
[2024-07-25 12:00] VITALS: BP 97/61; PULSE 80; RESP 16; TEMP 36.3; O2SAT 95
[2024-07-25 16:00] VITALS: BP 93/63; PULSE 85; RESP 16; TEMP 36.6; O2SAT 95
[2024-07-25 20:00] VITALS: BP 105/62; PULSE 81; RESP 19; TEMP 36.6; O2SAT 100
[2024-07-26] VITALS: BP 108/64; PULSE 65; RESP 17; TEMP 36.7; O2SAT 99
[2024-07-26 04:00] VITALS: BP 106/61; PULSE 98; RESP 19; TEMP 36.8; O2SAT 99
[2024-07-26 08:00] VITALS: BP 102/71; PULSE 63; RESP 20; TEMP 36.4; O2SAT 100
[2024-07-26 12:00] VITALS: BP 100/58; PULSE 87; RESP 20; TEMP 36.6; O2SAT 100
[2024-07-26 20:00] VITALS: BP 109/57; PULSE 84; RESP 18; TEMP 36.6; O2SAT 98
[2024-07-27] VITALS: BP 110/62; PULSE 90; RESP 18; TEMP 36.3; O2SAT 96
[2024-07-27 04:58] VITALS: BP 112/68; PULSE 83; RESP 18; TEMP 36.3; O2SAT 97
[2024-07-27 08:00] VITALS: BP 115/70; PULSE 60; RESP 20; TEMP 36.4; O2SAT 100
[2024-07-27 12:00] VITALS: BP 128/61; PULSE 91; RESP 20; TEMP 36.2
[2024-07-27 16:00] VITALS: BP 128/61; PULSE 91; RESP 20; TEMP 36.2
[2024-07-27 20:00] VITALS: BP 107/59; PULSE 79; RESP 18; TEMP 36.7
[2024-07-28] VITALS (7 sets, daily range): BP systolic 101–127; BP diastolic 63–88; PULSE 83–101; RESP 18–20; TEMP 36.3–36.7; O2SAT 95–98
[2024-07-29] VITALS: BP 104/67; PULSE 94; RESP 19; TEMP 36.6; O2SAT 100
[2024-07-29 04:00] VITALS: BP 115/67; PULSE 89; RESP 20; TEMP 36.8; O2SAT 98
[2024-07-29 08:00] VITALS: BP 105/67; PULSE 91; RESP 18; TEMP 36.1; O2SAT 100
[2024-07-29 12:00] VITALS: BP 99/64; PULSE 89; RESP 20; TEMP 36.5; O2SAT 97
[2024-07-29 16:00] VITALS: BP 103/73; PULSE 86; RESP 18; TEMP 36.6; O2SAT 97
[2024-07-29 20:00] VITALS: BP 95/60; PULSE 74; RESP 18; TEMP 36.6; O2SAT 97
[2024-07-30] VITALS: BP 101/65; PULSE 79; RESP 17; TEMP 36.6; O2SAT 99
[2024-07-30 04:00] VITALS: BP 108/67; PULSE 68; RESP 18; TEMP 36.4; O2SAT 98
[2024-07-30 08:00] VITALS: BP 103/63; PULSE 81; RESP 16; TEMP 36.4; O2SAT 95
[2024-07-30 12:00] VITALS: BP 104/67; PULSE 78; RESP 17; TEMP 36.4; O2SAT 95
[2024-07-30] MEDS ORDERED: ACETAMINOPHEN 325MG TABLET PO PRN (15:00)
[2024-07-30 16:00] VITALS: BP 105/68; PULSE 75; RESP 16; TEMP 36.8; O2SAT 95
[2024-07-30 20:00] VITALS: BP 131/85; PULSE 86; RESP 20; TEMP 36.3; O2SAT 98
[2024-07-31] VITALS: BP 103/65; PULSE 90; RESP 18; TEMP 36.5; O2SAT 99
[2024-07-31 04:00] VITALS: BP 99/65; PULSE 89; RESP 16; TEMP 36.1; O2SAT 98
[2024-07-31 08:00] VITALS: BP 119/64; PULSE 84; RESP 17; TEMP 36.6; O2SAT 95
[2024-07-31 12:00] VITALS: BP 104/60; PULSE 83; RESP 16; TEMP 36.3; O2SAT 96
[2024-07-31 16:00] VITALS: BP 114/63; PULSE 77; RESP 16; TEMP 36.3; O2SAT 95
[2024-07-31 20:00] VITALS: BP 104/53; PULSE 79; RESP 18; TEMP 36.4; O2SAT 98
[2024-08-01] VITALS: BP 103/86; PULSE 86; RESP 19; TEMP 36.3; O2SAT 97
[2024-08-01 04:00] VITALS: BP 115/65; PULSE 80; RESP 18; TEMP 36.3; O2SAT 99
[2024-08-01 08:00] VITALS: BP 102/57; PULSE 59; RESP 18; TEMP 36.7; O2SAT 99
[2024-08-01 12:00] VITALS: PULSE 75; RESP 18; TEMP 36.3; O2SAT 98
[2024-08-01 16:00] VITALS: BP 104/64; PULSE 74; RESP 18; TEMP 36.4; O2SAT 97
[2024-08-01 20:00] VITALS: BP 102/63; PULSE 78; RESP 19; TEMP 36.2; O2SAT 99
[2024-08-02] VITALS: BP 115/66; PULSE 75; RESP 19; TEMP 36.1; O2SAT 98
[2024-08-02 04:00] VITALS: BP 113/71; PULSE 85; RESP 19; TEMP 36.2; O2SAT 99
[2024-08-02 08:00] VITALS: BP 100/60; PULSE 76; RESP 17; TEMP 36.5; O2SAT 95
[2024-08-02 12:00] VITALS: BP 95/58; PULSE 78; RESP 17; TEMP 36.6; O2SAT 96
[2024-08-02 16:00] VITALS: BP 102/61; PULSE 79; RESP 15; TEMP 36.5; O2SAT 95
[2024-08-02 20:00] VITALS: BP 117/61; PULSE 77; RESP 19; TEMP 36.6; O2SAT 97
[2024-08-03] VITALS: BP 110/56; PULSE 84; RESP 19; TEMP 36.3; O2SAT 96
[2024-08-03 04:00] VITALS: BP 105/59; PULSE 85; RESP 18; TEMP 36.4; O2SAT 98
[2024-08-03 08:00] VITALS: BP 101/64; PULSE 88; RESP 16; TEMP 36.4; O2SAT 96
[2024-08-03 12:00] VITALS: BP 102/63; PULSE 67; PULSE 83; RESP 18; TEMP 36.4; O2SAT 95
[2024-08-03 16:00] VITALS: BP 97/63; PULSE 83; RESP 16; TEMP 36.3; O2SAT 96
[2024-08-03 20:00] VITALS: BP 96/64; PULSE 78; RESP 18; TEMP 36.8; O2SAT 95
[2024-08-04] VITALS: BP 101/65; PULSE 57; RESP 19; TEMP 36.7; O2SAT 96
[2024-08-04 04:00] VITALS: BP 95/62; PULSE 60; RESP 18; TEMP 36.6; O2SAT 97
[2024-08-04 08:00] VITALS: BP 96/73; PULSE 80; RESP 18; TEMP 36.4; O2SAT 95
[2024-08-04 12:00] VITALS: BP 112/59; PULSE 86; RESP 18; TEMP 36.6; O2SAT 99
[2024-08-04 16:00] VITALS: BP 120/72; PULSE 83; RESP 18; TEMP 36.4; O2SAT 100
[2024-08-04 20:00] VITALS: BP 119/66; PULSE 66; RESP 18; TEMP 36.7; O2SAT 95
[2024-08-05] VITALS: BP 118/70; PULSE 74; RESP 19; TEMP 36.9; O2SAT 96
[2024-08-05 04:00] VITALS: BP 109/66; PULSE 100; RESP 18; TEMP 37; O2SAT 99
[2024-08-05 08:00] VITALS: BP 113/67; PULSE 80; RESP 18; TEMP 36.6; O2SAT 98
[2024-08-05 12:00] VITALS: BP 116/69; PULSE 82; RESP 18; TEMP 36.6; O2SAT 98
[2024-08-05 16:00] VITALS: BP 117/65; PULSE 83; RESP 18; TEMP 36.6; O2SAT 99
[2024-08-05 20:00] VITALS: BP 120/69; PULSE 100; RESP 18; TEMP 36.5; O2SAT 99
[2024-08-06] VITALS: BP 122/70; PULSE 60; RESP 18; TEMP 36.3; O2SAT 98
[2024-08-06 08:00] VITALS: BP 113/73; PULSE 99; RESP 17; TEMP 36.3; O2SAT 95
[2024-08-06 12:00] VITALS: BP 106/73; PULSE 88; RESP 16; TEMP 36.2; O2SAT 95
[2024-08-06 14:28] VITALS: BP 106/73; PULSE 88; TEMP 97.2; O2SAT 95
[2024-08-06 16:00] VITALS: BP 96/53; PULSE 84; RESP 20; TEMP 36.3; O2SAT 99
[2024-08-06] MEDS: TRAMADOL 50MG TABLET PO PRN (17:26)
[2024-08-06 20:00] VITALS: BP 92/61; PULSE 86; RESP 17; TEMP 36; O2SAT 99
[2024-08-06 22:08] LABS: HEMATOCRIT. 21.8 % (42.0-52.0); HEMOGLOBIN. 7.3 g/dL (14.0-18.0); MEAN PLATELET VOLUME 6.6 fl (7.4-10.4); PLATELET 126 x1000/uL (130-400); RED BLOOD CELL COUNT 2.83 mill/uL (4.7-6.1); RED CELL DISTRIBUTION WIDTH 17.8 % (11.6-14.6)
[2024-08-06 22:13] LABS: CREATININE 0.7 mg/dL (0.6-1.3)
[2024-08-06 22:14] LABS: UREA NITROGEN BLOOD 19 mg/dL (9-23)
[2024-08-06 23:24] LABS: BAND% 2.0 % (1.0-6.0); LYMPHOCYTES % MANUAL 24.0 % (20.0-50.0); MONOCYTES % MANUAL 8.0 % (2.0-8.0); NEUTROPHILS % MANUAL 66.0 % (45.0-75.0); PLATELET ESTIMATE DECREASED
[2024-08-07] VITALS: BP 119/77; PULSE 104; RESP 18; TEMP 36.3; O2SAT 95
[2024-08-07 04:00] VITALS: BP 102/63; PULSE 69; RESP 17; TEMP 36.3; O2SAT 99
[2024-08-07 08:00] VITALS: BP 103/65; PULSE 85; RESP 20; TEMP 36.3; O2SAT 94
[2024-08-07 12:00] VITALS: BP 107/60; PULSE 70; RESP 18; TEMP 36.3; O2SAT 96
[2024-08-07 20:00] VITALS: BP 107/62; PULSE 80; RESP 16; TEMP 36.6; O2SAT 98
[2024-08-08] VITALS: BP 145/73; PULSE 90; RESP 18; TEMP 36.6; O2SAT 92
[2024-08-08 08:00] VITALS: BP 114/66; PULSE 85; RESP 20; TEMP 36.4; O2SAT 87
[2024-08-08 12:00] VITALS: BP 110/60; PULSE 81; RESP 20; TEMP 36.3; O2SAT 92
[2024-08-08 16:00] VITALS: BP 112/63; PULSE 77; RESP 19; TEMP 36.3; O2SAT 85
[2024-08-08 20:00] VITALS: BP 107/63; PULSE 70; RESP 18; TEMP 36.6; O2SAT 93
[2024-08-09] VITALS: BP 118/64; PULSE 66; RESP 19; TEMP 36.6; O2SAT 93
[2024-08-09 04:00] VITALS: BP 110/68; PULSE 68; RESP 18; TEMP 36.8; O2SAT 97
[2024-08-09 16:48] LABS: MEAN PLATELET VOLUME 6.4 fl (7.4-10.4); PLATELET 124 x1000/uL (130-400); RED BLOOD CELL COUNT 2.65 mill/uL (4.7-6.1); RED CELL DISTRIBUTION WIDTH 17.8 % (11.6-14.6)
[2024-08-09 16:56] LABS: HEMATOCRIT. 20.7 % (42.0-52.0); HEMOGLOBIN. 6.7 g/dL (14.0-18.0)
[2024-08-09 17:18] LABS: CREATININE 0.6 mg/dL (0.6-1.3); EOSINOPHILS % MANUAL 1.0 % (0.0-5.0); LYMPHOCYTES % MANUAL 43.0 % (20.0-50.0); MONOCYTES % MANUAL 13.0 % (2.0-8.0); NEUTROPHILS % MANUAL 43.0 % (45.0-75.0); PLATELET ESTIMATE DECREASED; UREA NITROGEN BLOOD 13 mg/dL (9-23)
[2024-08-10] VITALS: BP 93/60; PULSE 67; RESP 18; TEMP 36.7
[2024-08-10 08:00] VITALS: BP 94/65; PULSE 100; RESP 18; TEMP 36.6; O2SAT 99
[2024-08-10 16:00] VITALS: BP 97/59; PULSE 97; RESP 16; TEMP 36.6
[2024-08-10 20:00] VITALS: BP 104/65; PULSE 96; RESP 19; TEMP 36.2; O2SAT 97
[2024-08-10 20:16] LABS: HEMATOCRIT. 22.6 % (42.0-52.0); HEMOGLOBIN. 7.1 g/dL (14.0-18.0); MEAN PLATELET VOLUME 6.6 fl (7.4-10.4); PLATELET 124 x1000/uL (130-400); RED BLOOD CELL COUNT 2.85 mill/uL (4.7-6.1); RED CELL DISTRIBUTION WIDTH 18.2 % (11.6-14.6)
[2024-08-10 20:30] LABS: CREATININE 0.7 mg/dL (0.6-1.3); UREA NITROGEN BLOOD 15 mg/dL (9-23)
[2024-08-10 20:43] LABS: BAND% 2.0 % (1.0-6.0); EOSINOPHILS % MANUAL 4.0 % (0.0-5.0); LYMPHOCYTES % MANUAL 39.0 % (20.0-50.0); MONOCYTES % MANUAL 17.0 % (2.0-8.0); NEUTROPHILS % MANUAL 38.0 % (45.0-75.0); NUCLEATED RED BLOOD CELLS 7 /100 WBC
[2024-08-10 20:44] LABS: PLATELET ESTIMATE DECREASED
[2024-08-11] VITALS: BP 106/67; PULSE 95; RESP 18; TEMP 36.2; O2SAT 97
[2024-08-11 03:45] VITALS: BP 98/60; TEMP 36.5
[2024-08-11 08:00] VITALS: BP 116/68; PULSE 90; RESP 16; TEMP 36.4; O2SAT 95
[2024-08-11 12:00] VITALS: BP 100/57; PULSE 87; RESP 20; TEMP 36.7; O2SAT 96
[2024-08-11 16:00] VITALS: BP 101/61; PULSE 84; RESP 18; TEMP 36.6; O2SAT 96
[2024-08-11 20:00] VITALS: BP 98/60; PULSE 83; RESP 17; TEMP 36.7; O2SAT 96
[2024-08-12] VITALS: BP 102/60; PULSE 85; RESP 17; TEMP 36.8; O2SAT 97
[2024-08-12 04:00] VITALS: BP 102/66; PULSE 87; RESP 18; TEMP 36.7; O2SAT 97
[2024-08-12 08:00] VITALS: BP 100/58; PULSE 77; RESP 20; TEMP 36.2; O2SAT 96
[2024-08-12 12:00] VITALS: BP 122/70; PULSE 95; RESP 20; TEMP 36.6; O2SAT 95
[2024-08-12 20:00] VITALS: BP 97/65; PULSE 89; RESP 20; TEMP 36; O2SAT 98
[2024-08-13] VITALS: BP 126/72; PULSE 81; RESP 18; TEMP 36.2; O2SAT 98
[2024-08-13 04:00] VITALS: BP 97/59; PULSE 78; RESP 17; TEMP 36.2; O2SAT 97
[2024-08-13 08:00] VITALS: BP 115/70; PULSE 80; RESP 20; TEMP 36.3; O2SAT 97
[2024-08-13 12:00] VITALS: BP 93/55; PULSE 90; RESP 20; TEMP 36.4; O2SAT 96
[2024-08-13 16:00] VITALS: BP 118/67; PULSE 77; RESP 19; TEMP 36.3; O2SAT 95
[2024-08-13 20:00] VITALS: BP 102/60; PULSE 78; RESP 20; TEMP 36.4; O2SAT 97
[2024-08-13] MEDS: MIRTAZAPINE 15MG TABLET PO SCH (21:25)
[2024-08-14] VITALS: BP 112/67; PULSE 89; RESP 19; TEMP 36.4; O2SAT 99
[2024-08-14 04:00] VITALS: BP 107/63; PULSE 68; RESP 20; TEMP 36.8; O2SAT 100
[2024-08-14 08:00] VITALS: BP 110/70; PULSE 78; RESP 18; TEMP 36.7; O2SAT 100
[2024-08-14 12:00] VITALS: BP 109/65; PULSE 80; RESP 18; TEMP 36.4; O2SAT 100
[2024-08-14 16:00] VITALS: BP 116/74; PULSE 83; RESP 18; TEMP 36.3; O2SAT 100
[2024-08-14 20:00] VITALS: BP 100/63; PULSE 98; RESP 18; TEMP 36.7; O2SAT 96
[2024-08-15] VITALS: BP 110/66; PULSE 91; RESP 18; TEMP 36.5; O2SAT 97
[2024-08-15 04:00] VITALS: BP 95/62; PULSE 95; RESP 18; TEMP 36.9; O2SAT 95
[2024-08-15 08:00] VITALS: BP 122/68; PULSE 60; RESP 20; TEMP 36.5; O2SAT 95
[2024-08-15 12:00] VITALS: BP 108/66; PULSE 83; RESP 19; TEMP 36.3; O2SAT 95
[2024-08-15 16:00] VITALS: BP 104/67; PULSE 86; RESP 16; TEMP 36.4; O2SAT 96
[2024-08-15 20:00] VITALS: BP 117/75; PULSE 87; RESP 18; TEMP 36.6; O2SAT 95
[2024-08-16] VITALS (16 sets, daily range): BP systolic 101–147; BP diastolic 62–93; PULSE 70–97; RESP 16–18; TEMP 35.8362–37.2252; O2SAT 93–99
[2024-08-16 00:50] LABS: MEAN PLATELET VOLUME 6.9 fl (7.4-10.4); PLATELET 93 x1000/uL (130-400); RED BLOOD CELL COUNT 2.47 mill/uL (4.7-6.1); RED CELL DISTRIBUTION WIDTH 17.5 % (11.6-14.6)
[2024-08-16 00:53] LABS: CREATININE 0.8 mg/dL (0.6-1.3); UREA NITROGEN BLOOD 17 mg/dL (9-23)
[2024-08-16 01:07] LABS: HEMOGLOBIN. 6.2 g/dL (14.0-18.0)
[2024-08-16 01:08] LABS: HEMATOCRIT. 19.5 % (42.0-52.0)
[2024-08-16] MEDS: DEXT 5% WATER + KCL 20MEQ/L 1,000 ML IV SCH (02:58)
[2024-08-16 15:00] LABS: BAND% 16.0 % (1.0-6.0); LYMPHOCYTES % MANUAL 33.0 % (20.0-50.0); MONOCYTES % MANUAL 9.0 % (2.0-8.0); MYELOCYTES % 1.0 % (0-0); NEUTROPHILS % MANUAL 41.0 % (45.0-75.0); NUCLEATED RED BLOOD CELLS 2 /100 WBC; PLATELET ESTIMATE DECREASED
[2024-08-16 21:54] LABS: HEMATOCRIT. 33.1 % (42.0-52.0); HEMOGLOBIN. 11.0 g/dL (14.0-18.0); MEAN PLATELET VOLUME 7.1 fl (7.4-10.4); PLATELET 77 x1000/uL (130-400); RED BLOOD CELL COUNT 4.09 mill/uL (4.7-6.1); RED CELL DISTRIBUTION WIDTH 16.1 % (11.6-14.6)
[2024-08-16 22:27] LABS: CREATININE 0.6 mg/dL (0.6-1.3)
[2024-08-16 22:28] LABS: UREA NITROGEN BLOOD 12 mg/dL (9-23)
[2024-08-16 22:40] LABS: EOSINOPHILS % MANUAL 1.0 % (0.0-5.0); LYMPHOCYTES % MANUAL 34.0 % (20.0-50.0); MONOCYTES % MANUAL 12.0 % (2.0-8.0); NEUTROPHILS % MANUAL 53.0 % (45.0-75.0); PLATELET ESTIMATE DECREASED
[2024-08-17] VITALS: BP 123/75; PULSE 80; RESP 16; TEMP 36; O2SAT 81
[2024-08-17 04:00] VITALS: BP 124/73; PULSE 69; RESP 14; TEMP 36.2; O2SAT 100
[2024-08-17 20:00] VITALS: BP 124/73; PULSE 74; RESP 17; TEMP 36.6; O2SAT 94
[2024-08-18] VITALS: BP 100/61; PULSE 75; RESP 17; TEMP 36.8; O2SAT 100
[2024-08-18 04:00] VITALS: BP 98/60; PULSE 65; RESP 18; TEMP 36.7; O2SAT 98
[2024-08-18 08:00] VITALS: BP 106/61; PULSE 75; RESP 19; TEMP 36.3; O2SAT 95
[2024-08-18] MEDS: DEXT 5% WATER + KCL 20MEQ/L 1,000 ML IV SCH (08:53)
[2024-08-18 12:00] VITALS: BP 107/69; RESP 16; TEMP 36.4; O2SAT 97
[2024-08-18 20:00] VITALS: BP 103/64; PULSE 65; RESP 18; TEMP 36.6; O2SAT 95
[2024-08-19] VITALS: BP 105/64; PULSE 81; RESP 17; TEMP 36.7; O2SAT 100
[2024-08-19 04:00] VITALS: BP 114/67; PULSE 62; RESP 17; TEMP 36.7; O2SAT 100
[2024-08-19 08:00] VITALS: BP 112/67; PULSE 68; RESP 15; TEMP 36.4; O2SAT 99
[2024-08-19 12:00] VITALS: BP 104/63; PULSE 67; RESP 18; TEMP 36.4; O2SAT 96
[2024-08-19 16:00] VITALS: BP 104/67; PULSE 73; RESP 16; TEMP 36.4; O2SAT 98
[2024-08-19 20:00] VITALS: BP 112/73; PULSE 70; RESP 16; TEMP 36.4; O2SAT 91
[2024-08-19 22:03] LABS: HEMATOCRIT. 31.6 % (42.0-52.0); HEMOGLOBIN. 10.3 g/dL (14.0-18.0); MEAN PLATELET VOLUME 7.0 fl (7.4-10.4); PLATELET 79 x1000/uL (130-400); RED BLOOD CELL COUNT 3.86 mill/uL (4.7-6.1); RED CELL DISTRIBUTION WIDTH 17.1 % (11.6-14.6)
[2024-08-19 22:34] LABS: LYMPHOCYTES % MANUAL 30.0 % (20.0-50.0); MONOCYTES % MANUAL 17.0 % (2.0-8.0); NEUTROPHILS % MANUAL 53.0 % (45.0-75.0); PLATELET ESTIMATE DECREASED
[2024-08-20] VITALS (7 sets, daily range): BP systolic 103–121; BP diastolic 64–70; PULSE 63–85; RESP 16–20; TEMP 36.2–36.6; O2SAT 85–100
[2024-08-20] MEDS ORDERED: TRAMADOL 50MG TABLET PO PRN (10:30)
[2024-08-20] MEDS ORDERED: NALOXONE HCL 0.4MG/ML VIAL IV PRN (10:30)
[2024-08-20] MEDS: IPRATROPIUM/ALBUTEROL 0.5-3(2.5)MG/3ML NEB HHN SCH (22:32)
[2024-08-21] VITALS (9 sets, daily range): BP systolic 96–117; BP diastolic 52–74; PULSE 78–98; RESP 1–20; TEMP 36.1–36.3; O2SAT 97–98
[2024-08-22] VITALS (8 sets, daily range): BP systolic 92–115; BP diastolic 58–74; PULSE 60–103; RESP 16–19; TEMP 36–36.5; O2SAT 95–98
[2024-08-23] VITALS (10 sets, daily range): BP systolic 109–125; BP diastolic 71–89; PULSE 60–99; RESP 16–24; TEMP 36.3–36.6; O2SAT 92–100
[2024-08-23] MEDS: PANTOPRAZOLE 40MG DR TABLET PO SCH (06:04)
[2024-08-24] VITALS (10 sets, daily range): BP systolic 99–120; BP diastolic 57–71; PULSE 62–100; RESP 17–24; TEMP 36.1–36.8; O2SAT 96–100
[2024-08-25] VITALS (8 sets, daily range): BP systolic 90–121; BP diastolic 65–79; PULSE 70–108; RESP 16–20; TEMP 36.1–36.5; O2SAT 95–99
[2024-08-26] VITALS (8 sets, daily range): BP systolic 101–114; BP diastolic 53–71; PULSE 63–98; RESP 16–18; TEMP 36.3–36.7; O2SAT 42–100
[2024-08-26] MEDS ORDERED: IPRATROPIUM/ALBUTEROL 0.5-3(2.5)MG/3ML NEB HHN PRN (08:30)
[2024-08-26] MEDS: IPRATROPIUM/ALBUTEROL 0.5-3(2.5)MG/3ML NEB HHN SCH (11:31)
[2024-08-26 17:56] LABS: HEMATOCRIT. 28.3 % (42.0-52.0); HEMOGLOBIN. 9.1 g/dL (14.0-18.0); MEAN PLATELET VOLUME 7.0 fl (7.4-10.4); PLATELET 80 x1000/uL (130-400); RED BLOOD CELL COUNT 3.44 mill/uL (4.7-6.1); RED CELL DISTRIBUTION WIDTH 16.9 % (11.6-14.6)
[2024-08-26 18:10] LABS: CREATININE 0.6 mg/dL (0.6-1.3); UREA NITROGEN BLOOD 22 mg/dL (9-23)
[2024-08-26 18:15] LABS: LYMPHOCYTES % MANUAL 47.0 % (20.0-50.0); MONOCYTES % MANUAL 21.0 % (2.0-8.0); NEUTROPHILS % MANUAL 32.0 % (45.0-75.0); NUCLEATED RED BLOOD CELLS 6 /100 WBC; PLATELET ESTIMATE DECREASED
[2024-08-27] VITALS (9 sets, daily range): BP systolic 98–122; BP diastolic 60–70; PULSE 50–95; RESP 16–24; TEMP 36.2–36.7; O2SAT 94–99
[2024-08-27] MEDS: DEXT 5%/0.9% NACL 1,000 ML IV SCH (16:15)
[2024-08-28] VITALS (10 sets, daily range): BP systolic 90–105; BP diastolic 51–72; PULSE 53–109; RESP 17–24; TEMP 36.1–36.6; O2SAT 94–99
[2024-08-29] VITALS (8 sets, daily range): BP systolic 93–121; BP diastolic 58–83; PULSE 74–103; RESP 12–20; TEMP 36.1–36.6; O2SAT 65–97
[2024-08-29] MEDS: HYDROCODONE/ACETAMINOPHEN 5/325MG TABLET PO SCH (12:26)
[2024-08-30] VITALS (9 sets, daily range): BP systolic 101–118; BP diastolic 45–78; PULSE 81–96; RESP 17–22; TEMP 36.4–36.7; O2SAT 90–100
[2024-08-31] VITALS (8 sets, daily range): BP systolic 93–110; BP diastolic 56–72; PULSE 80–95; RESP 17–24; TEMP 36.2–36.7; O2SAT 92–100
[2024-09-01] VITALS: BP 112/59; PULSE 75; RESP 20; TEMP 36.3; O2SAT 100
[2024-09-01 04:00] VITALS: BP 93/60; PULSE 83; RESP 20; TEMP 36.8; O2SAT 100
[2024-09-01] MEDS ORDERED: LIDOCAINE HCL 1% 10 MG/ML 10ML VIAL ONE (09:34)
[2024-09-01 09:53] LABS: INR 1.1
[2024-09-01 09:56] LABS: CREATININE 0.6 mg/dL (0.6-1.3); UREA NITROGEN BLOOD 26 mg/dL (9-23)
[2024-09-01] MEDS: DEXTROSE 50% WATER 50ML SYRINGE IV PRN ×2 (10:45→12:48)
[2024-09-01 12:00] VITALS: BP 142/73; PULSE 67; RESP 19; TEMP 36.7; O2SAT 96
[2024-09-01] MEDS: DEXT 10% WATER 1,000 ML IV SCH (14:27)
[2024-09-01 16:00] VITALS: BP 116/70; PULSE 60; RESP 19; TEMP 36.6; O2SAT 83
[2024-09-01 20:00] VITALS: BP 97/63; PULSE 73; RESP 16; TEMP 36.1; O2SAT 100
[2024-09-02] VITALS: BP 100/70; PULSE 71; RESP 17; TEMP 36.3; O2SAT 100
[2024-09-02 04:00] VITALS: BP 94/61; PULSE 75; RESP 18; TEMP 36.4; O2SAT 100
[2024-09-02 08:00] VITALS: BP 100/71; PULSE 62; RESP 16; TEMP 36.1; O2SAT 100
[2024-09-02 12:00] VITALS: BP 95/61; PULSE 80; RESP 16; TEMP 36.2; O2SAT 95
[2024-09-02 16:00] VITALS: BP 104/60; PULSE 78; RESP 16; TEMP 36.3; O2SAT 99
[2024-09-02 20:00] VITALS: BP 96/61; PULSE 74; RESP 17; TEMP 36.1; O2SAT 100
[2024-09-03] VITALS (12 sets, daily range): BP systolic 95–141; BP diastolic 58–70; PULSE 76–86; RESP 16–20; TEMP 36.1–36.4; O2SAT 96–100
[2024-09-03] MEDS: IPRATROPIUM/ALBUTEROL 0.5-3(2.5)MG/3ML NEB HHN SCH (00:50)
[2024-09-03 04:00] LABS: MEAN PLATELET VOLUME 8.5 fl (7.4-10.4); RED BLOOD CELL COUNT 2.68 mill/uL (4.7-6.1); RED CELL DISTRIBUTION WIDTH 17.2 % (11.6-14.6)
[2024-09-03 06:40] LABS: HEMATOCRIT. 21.7 % (42.0-52.0); HEMOGLOBIN. 7.0 g/dL (14.0-18.0); PLATELET 24 x1000/uL (130-400)
[2024-09-03] MEDS: FAMOTIDINE 20MG TABLET PO SCH (09:42)
[2024-09-03 11:10] LABS: BAND% 27.0 % (1.0-6.0); EOSINOPHILS % MANUAL 5.0 % (0.0-5.0); LYMPHOCYTES % MANUAL 18.0 % (20.0-50.0); MONOCYTES % MANUAL 11.0 % (2.0-8.0); NEUTROPHILS % MANUAL 39.0 % (45.0-75.0); NUCLEATED RED BLOOD CELLS 11 /100 WBC
[2024-09-03 11:11] LABS: PLATELET ESTIMATE MARKEDLY DECREASED
[2024-09-03 21:35] LABS: CLARITY URINE TURBID (CLEAR); COLOR URINE YELLOW (YELLOW); SPECIFIC GRAVITY URINE 1.017 (1.005-1.030)
[2024-09-03 21:36] LABS: GLUCOSE URINE NEGATIVE (NEGATIVE); KETONES URINE NEGATIVE (NEGATIVE); LEUKOCYTE ESTERASE URINE TRACE (NEGATIVE); NITRITE URINE NEGATIVE (NEGATIVE); OCCULT BLOOD URINE NEGATIVE (NEGATIVE); PH URINE 6.0 (4.5-8.0); PROTEIN URINE 1+ (NEGATIVE); UROBILINOGEN URINE 1 E.U./dL (0.2-1.0)
[2024-09-03 21:56] LABS: SQUAMOUS EPITHELIAL CELL URINE FEW /lpf (RARE/1+)
[2024-09-03 21:57] LABS: BACTERIA URINE TRACE
[2024-09-04] VITALS (9 sets, daily range): BP systolic 97–104; BP diastolic 57–64; PULSE 73–101; RESP 17–20; TEMP 36.6–37.1; O2SAT 95–100
[2024-09-04 09:41] LABS: HEMATOCRIT. 24.3 % (42.0-52.0); HEMOGLOBIN. 7.8 g/dL (14.0-18.0); MEAN PLATELET VOLUME 8.4 fl (7.4-10.4); RED BLOOD CELL COUNT 3.02 mill/uL (4.7-6.1); RED CELL DISTRIBUTION WIDTH 17.0 % (11.6-14.6)
[2024-09-04 10:18] LABS: PLATELET 26 x1000/uL (130-400)
[2024-09-04] MEDS ORDERED: ALTEPLASE 100MG/VIAL IV SCH (10:30)
[2024-09-04] MEDS: ALTEPLASE 2MG/VIAL ITC SCH (11:19)
[2024-09-04 16:44] LABS: BAND% 3.0 % (1.0-6.0); EOSINOPHILS % MANUAL 1.0 % (0.0-5.0); LYMPHOCYTES % MANUAL 26.0 % (20.0-50.0); MONOCYTES % MANUAL 13.0 % (2.0-8.0); NEUTROPHILS % MANUAL 57.0 % (45.0-75.0); NUCLEATED RED BLOOD CELLS 11 /100 WBC; PLATELET ESTIMATE MARKEDLY DECREASED
[2024-09-05] VITALS (11 sets, daily range): BP systolic 98–127; BP diastolic 62–75; PULSE 99–109; RESP 18–22; TEMP 36.4–36.8; O2SAT 96–100
[2024-09-05] MEDS ORDERED: HYDROXYZINE 25MG TABLET PO PRN (12:15)
[2024-09-06] VITALS (13 sets, daily range): BP systolic 90–112; BP diastolic 60–67; PULSE 87–107; RESP 18–24; TEMP 36.4–36.7; O2SAT 93–100
[2024-09-06] MEDS: ARIPIPRAZOLE 2MG TABLET PO SCH ×2 (09:00→12:30)
[2024-09-06 16:36] LABS: BG BASE EXCESS 1.1 mmol/L (-2.0-3.0); BG CARBOXYHEMOGLOBIN 0.1 % (0.5-1.5); BG DEOXYHEMOGLOBIN 1.1 % (0.0-5.0); BG FRACTION INSPIRED OXYGEN 21; BG HCO3 ACT 23.8 mmol/L (21.0-28.0); BG METHEMOGLOBIN 0.3 % (0.5-1.5); BG OXYGEN SATURATION 98.9 % (94.0-98.0); BG OXYHEMOGLOBIN 98.5 % (94.0-98.0); BG PCO2 30.2 mmHg (35.0-48.0); BG PH 7.515 (7.350-7.450); BG PO2 145.2 mmHg (83.0-108.0); BG SAMPLE SITE LEFT RADIAL; BG TOTAL HEMOGLOBIN 8.3 g/dL (13.5-17.5); BG VENT MODE ROOM AIR
[2024-09-06 18:44] LABS: MEAN PLATELET VOLUME 8.2 fl (7.4-10.4); RED BLOOD CELL COUNT 2.32 mill/uL (4.7-6.1); RED CELL DISTRIBUTION WIDTH 16.8 % (11.6-14.6)
[2024-09-06 18:59] LABS: HEMATOCRIT. 18.8 % (42.0-52.0); HEMOGLOBIN. 6.1 g/dL (14.0-18.0); PLATELET 33 x1000/uL (130-400)
[2024-09-06 19:03] LABS: CREATININE 0.6 mg/dL (0.6-1.3); UREA NITROGEN BLOOD 26 mg/dL (9-23)
[2024-09-06 19:20] LABS: BAND% 4.0 % (1.0-6.0); LYMPHOCYTES % MANUAL 29.0 % (20.0-50.0); MONOCYTES % MANUAL 13.0 % (2.0-8.0); NEUTROPHILS % MANUAL 54.0 % (45.0-75.0); PLATELET ESTIMATE MARKEDLY DECREASED
[2024-09-06] MEDS: VANCOMYCIN 1G PREMIX 200 ML IV NR (19:30)
[2024-09-06 21:56] LABS: MEAN PLATELET VOLUME 8.4 fl (7.4-10.4); RED BLOOD CELL COUNT 2.19 mill/uL (4.7-6.1); RED CELL DISTRIBUTION WIDTH 16.6 % (11.6-14.6)
[2024-09-06 22:06] LABS: HEMOGLOBIN. 5.8 g/dL (14.0-18.0)
[2024-09-06 22:07] LABS: HEMATOCRIT. 17.7 % (42.0-52.0); PLATELET 28 x1000/uL (130-400)
[2024-09-06 22:23] LABS: ASPARTATE AMINOTRANSFERASE 38 IU/L (<34); BILIRUBIN DIRECT 0.3 mg/dL (<=3.0); BILIRUBIN TOTAL 0.5 mg/dL (0.1-1.0); PROTEIN TOTAL 4.3 g/dL (6.0-8.3)
[2024-09-06 22:38] LABS: BAND% 5.0 % (1.0-6.0); LYMPHOCYTES % MANUAL 27.0 % (20.0-50.0); MONOCYTES % MANUAL 10.0 % (2.0-8.0); NEUTROPHILS % MANUAL 58.0 % (45.0-75.0); PLATELET ESTIMATE MARKEDLY DECREASED
[2024-09-07] VITALS (15 sets, daily range): BP systolic 94–127; BP diastolic 61–82; PULSE 84–104; RESP 18–22; TEMP 36.3–36.6696; O2SAT 93–100
[2024-09-07] MEDS: VANCOMYCIN 750MG PREMIX 150 ML IV SCH ×2 (05:52→20:32)
[2024-09-07] MEDS: CEFTRIAXONE 1GM/50ML 50 ML IV SCH (08:25)
[2024-09-07] MEDS: LACTULOSE 20G/30ML UDC PO SCH (08:25)
[2024-09-07] MEDS: SODIUM CHLORIDE 0.45% 1,000 ML IV SCH (08:26)
[2024-09-07 10:22] LABS: HEMATOCRIT. 25.3 % (42.0-52.0); HEMOGLOBIN. 8.3 g/dL (14.0-18.0); MEAN PLATELET VOLUME 8.5 fl (7.4-10.4); RED BLOOD CELL COUNT 3.07 mill/uL (4.7-6.1); RED CELL DISTRIBUTION WIDTH 16.1 % (11.6-14.6)
[2024-09-07] MEDS: DEXTROSE 5% WATER 1,000 ML IV SCH (11:53)
[2024-09-07 13:54] LABS: BAND% 8.0 % (1.0-6.0); EOSINOPHILS % MANUAL 2.0 % (0.0-5.0); LYMPHOCYTES % MANUAL 23.0 % (20.0-50.0); METAMYELOCYTES % 2.0 % (0-0); MONOCYTES % MANUAL 15.0 % (2.0-8.0); NEUTROPHILS % MANUAL 50.0 % (45.0-75.0); NUCLEATED RED BLOOD CELLS 30 /100 WBC
[2024-09-07 13:55] LABS: PLATELET ESTIMATE MARKEDLY DECREASED
[2024-09-07 13:56] LABS: PLATELET 36 x1000/uL (130-400)
[2024-09-07 22:03] LABS: CREATININE 0.6 mg/dL (0.6-1.3); UREA NITROGEN BLOOD 23 mg/dL (9-23)
[2024-09-08] VITALS (13 sets, daily range): BP systolic 91–113; BP diastolic 65–76; PULSE 85–101; RESP 17–28; TEMP 36.1–36.7; O2SAT 98–100
[2024-09-08 08:08] LABS: ALPHA FETOPROTEIN TUMOR MARKER 2.9 ng/mL (0.0-8.4); CANCER ANTIGEN 125 133.0 U/mL (Not Estab.); PROSTATE SPECIFIC AG TOTAL 776.0 ng/mL (0.0-4.0)
[2024-09-08 11:37] LABS: HEMATOCRIT. 24.9 % (42.0-52.0); HEMOGLOBIN. 8.1 g/dL (14.0-18.0); MEAN PLATELET VOLUME 8.5 fl (7.4-10.4); RED BLOOD CELL COUNT 3.04 mill/uL (4.7-6.1); RED CELL DISTRIBUTION WIDTH 16.8 % (11.6-14.6)
[2024-09-08 11:41] LABS: CREATININE 0.6 mg/dL (0.6-1.3); UREA NITROGEN BLOOD 21 mg/dL (9-23)
[2024-09-08 11:54] LABS: PLATELET 37 x1000/uL (130-400)
[2024-09-08 13:01] LABS: BAND% 14.0 % (1.0-6.0); LYMPHOCYTES % MANUAL 36.0 % (20.0-50.0); MONOCYTES % MANUAL 14.0 % (2.0-8.0); NEUTROPHILS % MANUAL 36.0 % (45.0-75.0); NUCLEATED RED BLOOD CELLS 12 /100 WBC; PLATELET ESTIMATE DECREASED
[2024-09-08] MEDS: IPRATROPIUM/ALBUTEROL 0.5-3(2.5)MG/3ML NEB HHN SCH (17:02)
[2024-09-09] VITALS (60 sets, daily range): BP systolic 49–114; BP diastolic 39–101; PULSE 83–140; RESP 8–31; TEMP 36.4–36.9; O2SAT 88–100
[2024-09-09 07:11] LABS: HEMATOCRIT. 25.2 % (42.0-52.0); HEMOGLOBIN. 8.3 g/dL (14.0-18.0); MEAN PLATELET VOLUME 8.6 fl (7.4-10.4); RED BLOOD CELL COUNT 3.05 mill/uL (4.7-6.1); RED CELL DISTRIBUTION WIDTH 16.2 % (11.6-14.6)
[2024-09-09] MEDS: MIDODRINE HCL 5MG TABLET PO SCH (08:44)
[2024-09-09] MEDS ORDERED: LACTATED RINGERS 500 ML IV SCH (09:30)
[2024-09-09] MEDS: LACTATED RINGERS 500 ML IV ONE (09:43)
[2024-09-09] MEDS: NOREPINEPHRINE 8MG/250ML PMX 250 ML IV PRN (10:15)
[2024-09-09 11:36] LABS: CREATININE 1.2 mg/dL (0.6-1.3)
[2024-09-09 11:37] LABS: TROPONIN I HIGH SENSITIVITY 5 ng/L (3.0-53); UREA NITROGEN BLOOD 33 mg/dL (9-23)
[2024-09-09 11:38] LABS: ASPARTATE AMINOTRANSFERASE 70 IU/L (<34)
[2024-09-09 11:39] LABS: BILIRUBIN TOTAL 0.5 mg/dL (0.1-1.0); PROTEIN TOTAL 4.4 g/dL (6.0-8.3)
[2024-09-09 12:07] LABS: BG BASE EXCESS -7.5 mmol/L (-2.0-3.0); BG CARBOXYHEMOGLOBIN 0.1 % (0.5-1.5); BG DEOXYHEMOGLOBIN 0.1 % (0.0-5.0); BG FRACTION INSPIRED OXYGEN 100; BG HCO3 ACT 20.1 mmol/L (21.0-28.0); BG METHEMOGLOBIN 0.1 % (0.5-1.5); BG OXYGEN SATURATION 99.9 % (94.0-98.0); BG OXYHEMOGLOBIN 99.7 % (94.0-98.0); BG PCO2 50.7 mmHg (35.0-48.0); BG PEEP (cmH2O) 5.0 cmH2O; BG PH 7.215 (7.350-7.450); BG PO2 516.8 mmHg (83.0-108.0); BG SAMPLE SITE RIGHT RADIAL; BG TIDAL VOLUME(mL) 400.0 mL; BG TOTAL HEMOGLOBIN 9.1 g/dL (13.5-17.5); BG VENT MODE VENT - AC; BG VENT RATE 22.0 set
[2024-09-09] MEDS: LACTULOSE 20G/30ML UDC PO SCH ×2 (13:03→17:33)
[2024-09-09] MEDS: VANCOMYCIN 750MG PMX (XELLIA) 150 ML IV SCH (13:04)
[2024-09-09] MEDS: PHENYLEPHRINE 100 MG in DEXT 5% WATER 240 ML IV PRN (14:34)
[2024-09-09] MEDS: VASOPRESSIN 20 UNIT in SODIUM CHLORIDE 0.9% 99 ML IV PRN (15:26)
[2024-09-09 16:00] LABS: BAND% 27.0 % (1.0-6.0); EOSINOPHILS % MANUAL 3.0 % (0.0-5.0); LYMPHOCYTES % MANUAL 29.0 % (20.0-50.0); MONOCYTES % MANUAL 13.0 % (2.0-8.0); NEUTROPHILS % MANUAL 28.0 % (45.0-75.0); NUCLEATED RED BLOOD CELLS 32 /100 WBC
[2024-09-09 16:01] LABS: PLATELET 38 x1000/uL (130-400); PLATELET ESTIMATE MARKEDLY DECREASED
[2024-09-09 17:08] LABS: BG BASE EXCESS -15.4 mmol/L (-2.0-3.0); BG CARBOXYHEMOGLOBIN 0.1 % (0.5-1.5); BG DEOXYHEMOGLOBIN 2.3 % (0.0-5.0); BG FRACTION INSPIRED OXYGEN 40; BG HCO3 ACT 12.1 mmol/L (21.0-28.0); BG METHEMOGLOBIN 0.3 % (0.5-1.5); BG OXYGEN SATURATION 97.7 % (94.0-98.0); BG OXYHEMOGLOBIN 97.3 % (94.0-98.0); BG PCO2 34.9 mmHg (35.0-48.0); BG PEEP (cmH2O) 5.0 cmH2O; BG PH 7.159 (7.350-7.450); BG PO2 117.7 mmHg (83.0-108.0); BG SAMPLE SITE RIGHT RADIAL; BG TIDAL VOLUME(mL) 400.0 mL; BG TOTAL HEMOGLOBIN 9.3 g/dL (13.5-17.5); BG VENT MODE VENT - AC; BG VENT RATE 22.0 set
[2024-09-09] MEDS ORDERED: SODIUM CHLORIDE 0.45% IV SCH (17:15)
[2024-09-09] MEDS ORDERED: SODIUM BICARBONATE IV SCH (17:15)
[2024-09-09] MEDS: SODIUM BICARBONATE 8.4% 50MEQ/50ML SYR IV NR (17:32)
[2024-09-09] MEDS: SODIUM BICARBONATE 100 MEQ in SODIUM CHLORIDE 0.45% 900 ML IV SCH (18:02)
[2024-09-09] MEDS: NOREPINEPHRINE 32 MG in DEXT 5% WATER 218 ML IV PRN (18:03)
[2024-09-09] MEDS: DOPAMINE 400MG/250ML PREMIX 250 ML IV PRN (20:55)
[2024-09-09] MEDS ORDERED: EPINEPHRINE 10 MG in SODIUM CHLORIDE 0.9% 240 ML IV PRN (21:00)
[2024-09-09] MEDS: RIFAXIMIN 550 MG TABLET PO SCH (21:07)
== END 2024-09-09 23:20 | DRG 73 ==
LOC: ER 17:12 → EDBEDREQ 19:47 → 8EST 20:41 → EDBEDREQ 21:01 → ENRESERV 22:30 → 5EST 09-06 20:33 → MICUNO 09-09 10:08
PROVIDERS: ADMIT Internal Medicine; ATTEND Internal Medicine
PROC: 30233N1 Transfusion of Nonautologous Red Blood Cells into Peripheral Vein, Percutaneous Approach (ICD-10-PCS; principal; 2024-07-06)
PROC: GZ56ZZZ Individual Psychotherapy, Supportive (ICD-10-PCS; 2024-08-13)
PROC: 0DH68UZ Insertion of Feeding Device into Stomach, Via Natural or Artificial Opening Endoscopic (ICD-10-PCS; 2024-09-01)
PROC: 0DJ68ZZ Inspection of Stomach, Via Natural or Artificial Opening Endoscopic (ICD-10-PCS; 2024-09-01)
PROC: 02HV33Z Insertion of Infusion Device into Superior Vena Cava, Percutaneous Approach (ICD-10-PCS; 2024-09-01)
PROC: B548ZZA Ultrasonography of Superior Vena Cava, Guidance (ICD-10-PCS; 2024-09-01)
PROC: 5A1935Z Respiratory Ventilation, Less than 24 Consecutive Hours (ICD-10-PCS; 2024-09-09)
PROC: 0BH17EZ Insertion of Endotracheal Airway into Trachea, Via Natural or Artificial Opening (ICD-10-PCS; 2024-09-09)
DX: G90.89 Other disorders of autonomic nervous system (principal); A41.9 Sepsis, unspecified organism; G93.41 Metabolic encephalopathy; E43 Unspecified severe protein-calorie malnutrition; L89.153 Pressure ulcer of sacral region, stage 3; J18.9 Pneumonia, unspecified organism; R65.21 Severe sepsis with septic shock; J96.01 Acute respiratory failure with hypoxia; C77.9 Secondary and unspecified malignant neoplasm of lymph node, unspecified; C79.51 Secondary malignant neoplasm of bone; C79.31 Secondary malignant neoplasm of brain; D61.818 Other pancytopenia; R64 Cachexia; Z68.1 Body mass index [BMI] 19.9 or less, adult; E72.20 Disorder of urea cycle metabolism, unspecified; C61 Malignant neoplasm of prostate; Z66 Do not resuscitate; I10 Essential (primary) hypertension; K76.82 Hepatic encephalopathy; K52.89 Other specified noninfective gastroenteritis and colitis; E16.2 Hypoglycemia, unspecified; K29.70 Gastritis, unspecified, without bleeding; R13.11 Dysphagia, oral phase; S00.81XA Abrasion of other part of head, initial encounter; R62.7 Adult failure to thrive; F39 Unspecified mood [affective] disorder; F32.A Depression, unspecified; M48.061 Spinal stenosis, lumbar region without neurogenic claudication; K76.89 Other specified diseases of liver; E78.00 Pure hypercholesterolemia, unspecified; J45.909 Unspecified asthma, uncomplicated; Y95 Nosocomial condition; Z93.1 Gastrostomy status; X58.XXXA Exposure to other specified factors, initial encounter; Y93.89 Activity, other specified; Y92.89 Other specified places as the place of occurrence of the external cause; Y99.8 Other external cause status
CPT/HCPCS: 31500; 31720; 36415; 36573; 36600; 71045; 74018; 74176; 80048; 80053; 80076; 80202; 81003; 82105; 82140; 82375; 82550; 82607; 82728; 82746; 82805; 82962; 83540; 83550; 83605; 83735; 84100; 84145; 84153; 84484; 85025; 85044; 86301; 86304; 86850; 86900; 86920; 87070; 92610; 94002; 94070; 94640; 94664; 96360; 97116; 97162; 97166; 97530; 97535; 98960; 99291; A4606; C1725; J0696; J1265; J2003; J2371; J2470; J2997; J3373; J3490; J7030; J7042; J7050; J7060; J7070; P9016